=== PATIENT | male | born 1970 | race Caucasian/White ===

== ENCOUNTER 2016-06-26 11:16 | Emergency (ER) | payer SELFPAY ==
[~2016-06-26] VITALS: Ht 165.1 cm; Wt 90.0 kg
[~2016-06-26 11:16] MED LIST: GEMF600 PO; IBUP-232 PO; LISI-515 PO; TRAM50TA PO
[2016-06-26 11:19] VITALS: BP 157/102; PULSE 96; RESP 12; TEMP 97.7
--- NOTE | 2016-06-26 12:06 | PD ---
HPI Chief Complaint: Respiratory Distress Time Seen by Provider: 11:50 Travel History International Travel<30 days: No Contact w/Intl Traveler<30days: No Traveled to known affect area: No History of Present Illness HPI 46-year-old male with history of COPD here with complaint of shortness breath, cough, chest wall pain. Patient states that he has had a persistent cough for the last several months. This is productive of clearish sputum. No associated fevers or chills. He has some associated left-sided, left sternal margin chest pain. This is made worse with movement, cough, laying on his left side. Patient is concerned about a pulmonary mass, he brings records from a CT of the abdomen and pelvis from January 2016 that showed a 6 mm left pleural scar versus nodule. He has not yet had any follow-up that was indicated due to lack of health insurance. Patient states he presents to the ER today after several months of pain as it seems to be getting worse and not better. He denies any exertional component, history cardiac disease. PFSH Past Medical History Cancer: No Cardiovascular Problems: Yes High Cholesterol: Yes COPD: Yes Diminished Hearing: No Endocrine: No Gastrointestinal Disorders: Yes (pancreatitis) Genitourinary: No Hypertension: Yes Immune Disorder: No Musculoskeletal: No Neurologic: No Psychiatric: No Reproductive: No Respiratory: Yes (LEFT LUNG MASS) Triglycerides - High: Yes Tetanus Vaccination: > 5 Years Past Surgical History Abdominal Surgery: Yes (BILATERAL INGUINAL HERNIAS) Social History Alcohol Use: No Tobacco Use: Yes (06/04 ppd) Substance Use: No Allergies-Medications (Allergen,Severity, Reaction): Coded Allergies: Oxycodone (Verified Allergy, Severe, Hives, 06/26/16) Reported Meds & Prescriptions Reported Meds & Active Scripts Active Ibuprofen 600 Mg Tab 600 Mg PO Q6H PRN Lopid (Gemfibrozil) 600 Mg Tab 600 Mg PO BIDAC Reported Lisinopril 20 Mg Tab 20 Mg PO DAILY Review of Systems Except as stated in HPI: all other systems reviewed are Neg Physical Exam Narrative GENERAL: Obese male in no acute distress SKIN: Warm and dry. HEAD: Normocephalic. EYES: No scleral icterus. No injection or drainage. ENT: Mucous membranes pink and moist. NECK: Supple CARDIOVASCULAR: Regular rate and rhythm. No murmur appreciated. Reproducible point tenderness to palpation of the left lower sternal margin RESPIRATORY: No accessory muscle use. Wheezing and rhonchi bilaterally GASTROINTESTINAL: Obese MUSCULOSKELETAL: No edema. NEUROLOGICAL: Awake and alert. Normal speech. PSYCHIATRIC: Appropriate mood and affect; insight and judgment normal. Data Data Last Documented VS Vital Signs Date Time Temp Pulse Resp B/P Pulse Ox O2 Delivery O2 Flow Rate FiO2 06/26/16 12:44 98 06/26/16 11:19 97.7 96 12 157/102 Room Air Orders Complete Blood Count With Diff (06/26/16 12:03) Basic Metabolic Panel (Bmp) (06/26/16 12:03) Troponin I (06/26/16 12:03) Iv Access Insert/Monitor (06/26/16 12:03) Electrocardiogram (06/26/16 12:03) Ecg Monitoring (06/26/16 12:03) Oximetry (06/26/16 12:03) Chest, Single Ap (06/26/16 12:03) Sodium Chloride 0.9% Flush (Ns Flush) (06/26/16 12:15) Albuterol-Ipratropium Neb (Duoneb Neb) (06/26/16 12:15) Ketorolac Inj (Toradol Inj) (06/26/16 12:15) Labs Laboratory Tests Test 06/26/16 12:15 White Blood Count 6.7 TH/MM3 Red Blood Count 4.87 MIL/MM3 Hemoglobin 15.2 GM/DL Hematocrit 43.4 % Mean Corpuscular Volume 89.1 FL Mean Corpuscular Hemoglobin 31.3 PG Mean Corpuscular Hemoglobin 35.1 % Concent Red Cell Distribution Width 13.7 % Platelet Count 191 TH/MM3 Mean Platelet Volume 8.9 FL Neutrophils (%) (Auto) 59.2 % Lymphocytes (%) (Auto) 30.9 % Monocytes (%) (Auto) 8.0 % Eosinophils (%) (Auto) 0.9 % Basophils (%) (Auto) 1.0 % Neutrophils # (Auto) 4.0 TH/MM3 Lymphocytes # (Auto) 2.1 TH/MM3 Monocytes # (Auto) 0.5 TH/MM3 Eosinophils # (Auto) 0.1 TH/MM3 Basophils # (Auto) 0.1 TH/MM3 CBC Comment DIFF FINAL Differential Comment Sodium Level 137 MEQ/L Potassium Level 4.3 MEQ/L Chloride Level 103 MEQ/L Carbon Dioxide Level 25.7 MEQ/L Anion Gap 8 MEQ/L Blood Urea Nitrogen 18 MG/DL Creatinine 1.04 MG/DL Estimat Glomerular Filtration 77 ML/MIN Rate Random Glucose 146 MG/DL Calcium Level 9.2 MG/DL Troponin I LESS THAN 0.02 NG/ML [facility] Medical Decision Making Medical Screen Exam Complete: Yes Emergency Medical Condition: Yes Medical Record Reviewed: Yes Differential Diagnosis 46-year-old male with history of COPD or with months of shortness of breath, cough, chest wall pain. Differential includes COPD, chronic bronchitis, pneumonia, pulmonary mass, ACS, musculoskeletal, costochondritis, and less likely PE or dissection. Narrative Course Patient placed on monitor, IV established and blood obtained. Given 30 mg Toradol, DuoNeb 3. Twelve-lead EKG showed sinus rhythm without notable ST abnormalities, normal intervals. Portable chest x-ray obtained that by my read shows no acute abnormalities. CBC, BMP, troponin unremarkable. Financial counselor came and gave patient information about patient assistance application. Patient felt improved after the above therapy. He will be discharged home with steroids, albuterol for his COPD. He does not need emergent CT for his 6 mm pleural-based thickening, this can be performed as an outpatient. [facility] care. Given the chronicity of his symptoms I do not think he warrants serial EKGs, cardiac enzymes. This seems clearly muscular related to his COPD. Diagnosis Primary Impression: COPD (chronic obstructive pulmonary disease) with acute bronchitis Additional Impression: Chest wall pain Referrals: [facility] call for appointment Additional Instructions: Finished steroids as prescribed. Albuterol as needed for shortness of. Tylenol , ibuprofen as needed for chest wall pain. Follow-up in the [facility] to establish care. Med/Other Pt SpecificInfo: Prescription(s) given Scripts Nebulizer 1 Mis Mis #1 EA .ROUTE DIRECTED Ref 0 Use with albuterol every 4 hours as needed for cough, wheezing, shortness of breath Prov:Charmaine Galeas MD 06/26/16 Albuterol Neb 2.5 Mg/3 Ml Neb2.5 Mg NEB Q4HR NEB #60 NEBULE Ref 0 While awake Prov:Charmaine Galeas MD 06/26/16 Prednisone 50 Mg Tab50 Mg PO DAILY 5 Days Ref 0 Prov:Charmaine Galeas MD 06/26/16 Disposition: 01 DISCHARGE HOME Condition: Stable Charmaine Galeas MD Jun 26, 2016 12:06
[2016-06-26] MEDS: RESP: ALBUTEROL 2.5 MG/IPRATROPIUM 0.5 MG NEB (SCH) INH ×2 (12:10→12:11)
[2016-06-26] MEDS ORDERED: SODIUM CHLORIDE 0.9% FLUSH 5 ML FLUSH IVF PRN (12:15)
[2016-06-26] MEDS ORDERED: KETOROLAC TROMETHAMINE 30 MG/ML (IVP) VIAL IV PUSH ONE (12:15)
[2016-06-26 12:33] LABS: BASOPHIL # 0.1 TH/MM3 (0-0.2); EOSINOPHIL # 0.1 TH/MM3 (0-0.4); EOSINOPHIL % 0.9 % (0.0-4.0); HEMATOCRIT 43.4 % (39.0-51.0); HEMO FLAGS DIFF FINAL; LYMPH % 30.9 % (9.0-44.0); LYMPHOCYTE # 2.1 TH/MM3 (1.0-4.8); MEAN CELL VOLUME 89.1 FL (80.0-100.0); MEAN CORPUSCULAR HEMOGLOBIN 31.3 PG (27.0-34.0); MEAN CORPUSCULAR HGB CONC 35.1 % (32.0-36.0); NEUT % 59.2 % (16.0-70.0); PLATELET COUNT 191 TH/MM3 (150-450); RED BLOOD COUNT 4.87 MIL/MM3 (4.50-5.90); RED CELL DISTRIBUTION WIDTH 13.7 % (11.6-17.2); WHITE BLOOD COUNT 6.7 TH/MM3 (4.0-11.0)
[2016-06-26 12:44] VITALS: O2SAT 98
--- NOTE | 2016-06-26 12:58 | RADRPT ---
EXAM DATE/TIME: 06/26/2016 12:33 [facility] COMPARISON: CT ABDOMEN & PELVIS W CONTRAST, April 24, 2015, 19:29. CT ABDOMEN & PELVIS W CONTRAST, April 042015, 10:57. CHEST SINGLE AP, April 24, 2015, 16:10. INDICATIONS : Shortness of breath and chest pain. MEDICAL HISTORY : Chronic obstructive pulmonary disease. Cardiovascular disease. Hypertension. Pancreatitis SURGICAL HISTORY : None. ENCOUNTER: Initial ACUITY: 1 week PAIN SCORE: 7/10 LOCATION: Left chest FINDINGS: Portable AP view of the chest demonstrates a normal-sized cardiac silhouette. No effusion, consolidat ion, or pneumothorax is visualized. The bones and soft tissues demonstrate no acute abnormality. Ther e is a suspected small hiatal hernia. CONCLUSION: 1. No acute cardiopulmonary abnormality is identified. 2. Suspected small hiatal hernia. Kirill Pineda MD on June 26, 2016 at 12:56 Board Certified Radiologist. This report was verified electronically.
[2016-06-26 13:17] LABS: ANION GAP 8 MEQ/L (5-15); BICARBONATE 25.7 MEQ/L (21.0-32.0); BLOOD UREA NITROGEN 18 MG/DL (7-18); CHLORIDE 103 MEQ/L (98-107); GLOMERULAR FILTRATION RATE 77 ML/MIN (>89); SODIUM (NA) 137 MEQ/L (136-145)
[2016-06-26 13:25] LABS: POTASSIUM 4.3 MEQ/L (3.5-5.1)
[2016-06-26] MEDS ORDERED: PRED50 PO (13:35)
[2016-06-26] MEDS ORDERED: ALBU0.08 NEB (13:35)
[2016-06-26] MEDS ORDERED: NEBULIZER1 MI1 (13:36)
[2016-06-26] MEDS ORDERED: LISI-515 PO (13:40)
--- NOTE | 2016-06-26 19:23 | EKG ---
Date Performed: 06/26/2016 Time Performed: 12:22:14 PTAGE: 46 years EKG: Sinus rhythm NORMAL ECG NO SIGNIFICANT CHANGE FROM PRIOR ELECTROCARDIOGRAM. PREVIOUS TRACING : 10/10/2015 16.35 DOCTOR: David Aviles Interpretating Date/Time 06/26/2016 19:22:09
== END 2016-06-26 13:58 | disposition home or self-care (01) ==
LOC: NEPD 11:16
DX: J44.0 Chronic obstructive pulmonary disease with (acute) lower respiratory infection (principal); R07.89 Other chest pain; E78.00 Pure hypercholesterolemia, unspecified; I10 Essential (primary) hypertension; F17.210 Nicotine dependence, cigarettes, uncomplicated
CPT/HCPCS: 71010; 80048; 84484; 85025; 93005; 94640; 94664; 96374; 99284; J1885

== ENCOUNTER 2016-09-17 09:27 | Emergency (ER) | payer SELFPAY ==
[~2016-09-17] VITALS: Ht 165.1 cm; Wt 90.5 kg
[~2016-09-17 09:27] MED LIST changes: +ALBU0.08 NEB; +NEBULIZER1 MI1; +PRED50 PO; -TRAM50TA PO
[2016-09-17 09:29] VITALS: BP 169/117; PULSE 104; RESP 20; TEMP 97.7; O2SAT 99
--- NOTE | 2016-09-17 09:57 | PD ---
HPI Chief Complaint: Hypertension Time Seen by Provider: 09:54 Travel History International Travel<30 days: No Contact w/Intl Traveler<30days: No Traveled to known affect area: No History of Present Illness HPI Patient is a 46-year-old male presenting to emergency department for evaluation of elevated blood pressures, headache, dizziness, blurry vision, left-sided chest pain. Patient states that he's been out of his blood pressure medications for the last 2 months due to lack of insurance. He states he's had a frontal headache, he rates his pain a 6 out of 10 and states it's constant. He took ibuprofen yesterday which helped alleviate his symptoms somewhat. Denies any photophobia. He reports dizziness that comes and goes, worse with head movement or positional changes. He also reports chest congestion and a productive cough with clear sputum. He reports feeling overall weak. He reports that he continues to smoke but has been trying to cut back. He denies any fever, chills, nausea, vomiting, shortness of breath. He states when he checks his blood pressure his systolic is in the 160s to 170s and diastolic is in the 110s. Denies any illicit drug use. PFSH Past Medical History Cancer: No High Cholesterol: Yes COPD: Yes Diminished Hearing: No Endocrine: No Gastrointestinal Disorders: Yes (pancreatitis) Genitourinary: No Hypertension: Yes Immune Disorder: No Musculoskeletal: No Neurologic: No Psychiatric: No Reproductive: No Triglycerides - High: Yes Past Surgical History Abdominal Surgery: Yes (BILATERAL INGUINAL HERNIAS) Social History Alcohol Use: No Tobacco Use: Yes (1/2 ppd) Substance Use: No Allergies-Medications (Allergen,Severity, Reaction): Coded Allergies: Oxycodone (Verified Allergy, Severe, Hives, 09/17/16) Reported Meds & Prescriptions Reported Meds & Active Scripts Active Lisinopril 20 Mg Tab 20 Mg PO DAILY Albuterol Neb (Albuterol Sulfate) 2.5 Mg/3 Ml Neb 2.5 Mg NEB Q4HR NEB While awake Reported Lisinopril 20 Mg Tab 20 Mg PO DAILY Review of Systems Except as stated in HPI: all other systems reviewed are Neg General / Constitutional: No: Fever, Chills Eyes: Positive: Blurred Vision HENT: Positive: Headaches, Congestion, No: Lightheadedness Cardiovascular: Positive: Chest Pain or Discomfort, No: Tachycardia, Diaphoresis Respiratory: Positive: Cough, Wheezing, No: Shortness of Breath Gastrointestinal: No: Nausea, Vomiting, Abdominal Pain Musculoskeletal: No: Myalgias Neurologic: Positive: Dizziness, No: Syncope, Focal Abnormalities Physical Exam Narrative GENERAL: Overweight, well-developed, alert male. Resting comfortably in no acute distress. SKIN: Focused skin assessment warm/dry. HEAD: Atraumatic. Normocephalic. EYES: Pupils equal and round. No scleral icterus. No injection or drainage. ENT: No nasal bleeding or discharge. Mucous membranes pink and moist. NECK: Trachea midline. No JVD. CARDIOVASCULAR: Regular rate and rhythm. No murmur appreciated. RESPIRATORY: No accessory muscle use. Expiratory wheezing throughout lung anglin. No increased work of breathing, no nasal flaring, no retractions noted. GASTROINTESTINAL: Abdomen soft, non-tender, nondistended. Hepatic and splenic margins not palpable. MUSCULOSKELETAL: No obvious deformities. No clubbing. No cyanosis. No edema. NEUROLOGICAL: Awake and alert. No obvious cranial nerve deficits. Motor grossly within normal limits. Normal speech. PSYCHIATRIC: Appropriate mood and affect; insight and judgment normal. Data Data Last Documented VS Vital Signs Date Time Temp Pulse Resp B/P Pulse Ox O2 Delivery O2 Flow Rate FiO2 09/17/16 10:30 104 20 166/99 97 Room Air 09/17/16 10:05 21 09/17/16 09:29 97.7 Orders Complete Blood Count With Diff (09/17/16 09:49) Chest, Single Ap (09/17/16 09:49) Ecg Monitoring (09/17/16 09:49) Iv Access Insert/Monitor (09/17/16 09:49) Oximetry (09/17/16 09:49) Oxygen Administration (09/17/16 09:49) Albuterol-Ipratropium Neb (Duoneb Neb) (09/17/16 10:00) Sodium Chloride 0.9% Flush (Ns Flush) (09/17/16 10:00) Electrocardiogram (09/17/16 09:49) Ckmb (Isoenzyme) Profile (09/17/16 09:49) Magnesium (Mg) (09/17/16 09:49) Prothrombin Time / Inr (Pt) (09/17/16 09:49) Act Partial Throm Time (Ptt) (09/17/16 09:49) Troponin I (09/17/16 09:49) Basic Metabolic Panel (Bmp) (09/17/16 09:53) Lisinopril (Prinivil) (09/17/16 10:15) CKMB (09/17/16 10:05) CKMB% (09/17/16 10:05) Labs Laboratory Tests Test 09/17/16 10:05 White Blood Count 5.8 TH/MM3 Red Blood Count 5.06 MIL/MM3 Hemoglobin 16.3 GM/DL Hematocrit 46.4 % Mean Corpuscular Volume 91.6 FL Mean Corpuscular Hemoglobin 32.2 PG Mean Corpuscular Hemoglobin 35.1 % Concent Red Cell Distribution Width 13.7 % Platelet Count 194 TH/MM3 Mean Platelet Volume 9.0 FL Neutrophils (%) (Auto) 56.5 % Lymphocytes (%) (Auto) 31.9 % Monocytes (%) (Auto) 9.9 % Eosinophils (%) (Auto) 1.5 % Basophils (%) (Auto) 0.2 % Neutrophils # (Auto) 3.3 TH/MM3 Lymphocytes # (Auto) 1.8 TH/MM3 Monocytes # (Auto) 0.6 TH/MM3 Eosinophils # (Auto) 0.1 TH/MM3 Basophils # (Auto) 0.0 TH/MM3 CBC Comment DIFF FINAL Differential Comment Prothrombin Time 11.5 SEC Prothromb Time International 1.0 RATIO Ratio Activated Partial 24.0 SEC Thromboplast Time Sodium Level 135 MEQ/L Potassium Level 4.6 MEQ/L Chloride Level 104 MEQ/L Carbon Dioxide Level 21.2 MEQ/L Anion Gap 10 MEQ/L Blood Urea Nitrogen 17 MG/DL Creatinine 1.28 MG/DL Estimat Glomerular Filtration 60 ML/MIN Rate Random Glucose 127 MG/DL Calcium Level 9.2 MG/DL Magnesium Level 2.2 MG/DL Total Creatine Kinase 178 U/L Troponin I LESS THAN 0.02 NG/ML MDM Medical Decision Making Medical Screen Exam Complete: Yes Emergency Medical Condition: Yes Interpretation(s) Last Impressions Chest X-Ray 09/17/16 0994 Signed Impressions: Service Date/Time: Saturday, September 17, 2016 09:58 - CONCLUSION: No acute disease. Elemr Mahoney MD Laboratory Tests Test 09/17/16 10:05 White Blood Count 5.8 TH/MM3 Red Blood Count 5.06 MIL/MM3 Hemoglobin 16.3 GM/DL Hematocrit 46.4 % Mean Corpuscular Volume 91.6 FL Mean Corpuscular Hemoglobin 32.2 PG Mean Corpuscular Hemoglobin 35.1 % Concent Red Cell Distribution Width 13.7 % Platelet Count 194 TH/MM3 Mean Platelet Volume 9.0 FL Neutrophils (%) (Auto) 56.5 % Lymphocytes (%) (Auto) 31.9 % Monocytes (%) (Auto) 9.9 % Eosinophils (%) (Auto) 1.5 % Basophils (%) (Auto) 0.2 % Neutrophils # (Auto) 3.3 TH/MM3 Lymphocytes # (Auto) 1.8 TH/MM3 Monocytes # (Auto) 0.6 TH/MM3 Eosinophils # (Auto) 0.1 TH/MM3 Basophils # (Auto) 0.0 TH/MM3 CBC Comment DIFF FINAL Differential Comment Prothrombin Time 11.5 SEC Prothromb Time International 1.0 RATIO Ratio Activated Partial 24.0 SEC Thromboplast Time Sodium Level 135 MEQ/L Potassium Level 4.6 MEQ/L Chloride Level 104 MEQ/L Carbon Dioxide Level 21.2 MEQ/L Anion Gap 10 MEQ/L Blood Urea Nitrogen 17 MG/DL Creatinine 1.28 MG/DL Estimat Glomerular Filtration 60 ML/MIN Rate Random Glucose 127 MG/DL Calcium Level 9.2 MG/DL Magnesium Level 2.2 MG/DL Total Creatine Kinase 178 U/L Troponin I LESS THAN 0.02 NG/ML Vital Signs Date Time Temp Pulse Resp B/P Pulse Ox O2 Delivery O2 Flow Rate FiO2 09/17/16 09:29 97.7 104 20 169/117 99 Room Air Differential Diagnosis COPD exacerbation versus sinusitis versus unstable angina versus cardiac arrhythmia versus AMI versus hypertension Narrative Course Patient is a 46-year-old male that presented to emergency for evaluation of elevated blood pressure readings, dizziness, headache, chest congestion. Patient was hypertensive on arrival, he has been out of his blood pressure medicines for 2 months. CBC, chemistry, coags reviewed and are unremarkable. Chest x-ray shows no acute disease. Patient was given lisinopril 20 mg times one dose in the emergency department. His blood pressure was reassessed has improved. Patient will be discharged home, he will given information on the [facility] to continue routine health care. He is encouraged to avoid tobacco use. Return to emergency department for any new or worsening symptoms. Patient verbalized understanding of these instructions. Patient is stable for discharge. Diagnosis Primary Impression: Hypertension Qualified Code: I10 - Essential hypertension Additional Impression: COPD (chronic obstructive pulmonary disease) with acute bronchitis Referrals: [facility] 2 days Patient Instructions: 2 Gram Sodium Diet (DC), COPD (Chronic Obstructive Pulmonary Disease) (ED), General Instructions, Hypertension (ED) Additional Instructions: Follow-up at the at [facility] Avoid tobacco use Maintain a heart healthy diet Take medications as directed Return to emergency department for any new or worsening symptoms Med/Other Pt SpecificInfo: Prescription(s) given Scripts Lisinopril 20 Mg Tab20 Mg PO DAILY #30 TAB Ref 0 Prov:Valerie Goldstein 09/17/16 Disposition: 01 DISCHARGE HOME Condition: Stable Valerie Goldstein Sep 17, 2016 09:57
[2016-09-17] MEDS ORDERED: SODIUM CHLORIDE 0.9% FLUSH 10 ML FLUSH IVF PRN (10:00)
[2016-09-17] MEDS: RESP: ALBUTEROL 2.5 MG/IPRATROPIUM 0.5 MG NEB (SCH) INH (10:03)
[2016-09-17 10:05] VITALS: O2SAT 97
[2016-09-17] MEDS ORDERED: LISINOPRIL 20 MG TAB PO ONE (10:15)
[2016-09-17 10:24] LABS: AUTOMATED NEUTROPHIL # 3.3 TH/MM3 (1.8-7.7); BASOPHIL % 0.2 % (0.0-2.0); EOSINOPHIL # 0.1 TH/MM3 (0-0.4); EOSINOPHIL % 1.5 % (0.0-4.0); HEMATOCRIT 46.4 % (39.0-51.0); HEMO FLAGS DIFF FINAL; LYMPH % 31.9 % (9.0-44.0); LYMPHOCYTE # 1.8 TH/MM3 (1.0-4.8); MEAN CELL VOLUME 91.6 FL (80.0-100.0); MEAN CORPUSCULAR HEMOGLOBIN 32.2 PG (27.0-34.0); MEAN CORPUSCULAR HGB CONC 35.1 % (32.0-36.0); MONO % 9.9 % (0.0-8.0); NEUT % 56.5 % (16.0-70.0); PLATELET COUNT 194 TH/MM3 (150-450); RED BLOOD COUNT 5.06 MIL/MM3 (4.50-5.90); RED CELL DISTRIBUTION WIDTH 13.7 % (11.6-17.2); WHITE BLOOD COUNT 5.8 TH/MM3 (4.0-11.0)
[2016-09-17 10:30] VITALS: BP 166/99; PULSE 104; RESP 20; O2SAT 97
[2016-09-17 10:33] LABS: PROTHROMBIN TIME - PATIENT 11.5 SEC (9.8-11.6)
--- NOTE | 2016-09-17 10:33 | RADRPT ---
EXAM DATE/TIME: 09/17/2016 09:58 [facility] COMPARISON: CHEST SINGLE AP, June 26, 2016, 12:33. INDICATIONS : Palpitations. Patient states he is having blood pressure issues. MEDICAL HISTORY : Chronic obstructive pulmonary disease. Cardiovascular disease. SURGICAL HISTORY : None. ENCOUNTER: Initial ACUITY: 1 day PAIN SCORE: 2/10 LOCATION: Bilateral chest FINDINGS: A single view of the chest demonstrates the lungs to be symmetrically aerated without evidence of mas s, infiltrate or effusion. The cardiomediastinal contours are unremarkable. Osseous structures are intact. CONCLUSION: No acute disease. Elmer Mahoney MD on September 17, 2016 at 10:31 Board Certified Radiologist. This report was verified electronically.
[2016-09-17 10:44] LABS: BICARBONATE 21.2 MEQ/L (21.0-32.0); POTASSIUM 4.6 MEQ/L (3.5-5.1)
[2016-09-17 10:50] LABS: CREATINE KINASE 178 U/L (39-308); MAGNESIUM 2.2 MG/DL (1.5-2.5)
[2016-09-17 11:02] LABS: CKMB 0.9 NG/ML (0.5-3.6)
--- NOTE | 2016-09-17 11:06 | PD ---
Data Data Last Documented VS Vital Signs Date Time Temp Pulse Resp B/P Pulse Ox O2 Delivery O2 Flow Rate FiO2 09/17/16 10:30 104 20 166/99 97 Room Air 09/17/16 10:05 21 09/17/16 09:29 97.7 Orders Complete Blood Count With Diff (09/17/16 09:49) Chest, Single Ap (09/17/16 09:49) Ecg Monitoring (09/17/16 09:49) Iv Access Insert/Monitor (09/17/16 09:49) Oximetry (09/17/16 09:49) Oxygen Administration (09/17/16 09:49) Albuterol-Ipratropium Neb (Duoneb Neb) (09/17/16 10:00) Sodium Chloride 0.9% Flush (Ns Flush) (09/17/16 10:00) Electrocardiogram (09/17/16 09:49) Ckmb (Isoenzyme) Profile (09/17/16 09:49) Magnesium (Mg) (09/17/16 09:49) Prothrombin Time / Inr (Pt) (09/17/16 09:49) Act Partial Throm Time (Ptt) (09/17/16 09:49) Troponin I (09/17/16 09:49) Basic Metabolic Panel (Bmp) (09/17/16 09:53) Lisinopril (Prinivil) (09/17/16 10:15) CKMB (09/17/16 10:05) CKMB% (09/17/16 10:05) Labs Laboratory Tests Test 09/17/16 10:05 White Blood Count 5.8 TH/MM3 Red Blood Count 5.06 MIL/MM3 Hemoglobin 16.3 GM/DL Hematocrit 46.4 % Mean Corpuscular Volume 91.6 FL Mean Corpuscular Hemoglobin 32.2 PG Mean Corpuscular Hemoglobin 35.1 % Concent Red Cell Distribution Width 13.7 % Platelet Count 194 TH/MM3 Mean Platelet Volume 9.0 FL Neutrophils (%) (Auto) 56.5 % Lymphocytes (%) (Auto) 31.9 % Monocytes (%) (Auto) 9.9 % Eosinophils (%) (Auto) 1.5 % Basophils (%) (Auto) 0.2 % Neutrophils # (Auto) 3.3 TH/MM3 Lymphocytes # (Auto) 1.8 TH/MM3 Monocytes # (Auto) 0.6 TH/MM3 Eosinophils # (Auto) 0.1 TH/MM3 Basophils # (Auto) 0.0 TH/MM3 CBC Comment DIFF FINAL Differential Comment Prothrombin Time 11.5 SEC Prothromb Time International 1.0 RATIO Ratio Activated Partial 24.0 SEC Thromboplast Time Sodium Level 135 MEQ/L Potassium Level 4.6 MEQ/L Chloride Level 104 MEQ/L Carbon Dioxide Level 21.2 MEQ/L Anion Gap 10 MEQ/L Blood Urea Nitrogen 17 MG/DL Creatinine 1.28 MG/DL Estimat Glomerular Filtration 60 ML/MIN Rate Random Glucose 127 MG/DL Calcium Level 9.2 MG/DL Magnesium Level 2.2 MG/DL Total Creatine Kinase 178 U/L Troponin I LESS THAN 0.02 NG/ML MDM Supervised Visit with [facility]: Yes Narrative Course I, Dr. Galeas, have reviewed the advance practice practioner's documentation and am in agreement, met with the patient face to face, made the diagnosis, and the medical decision making was done by me. *My assessment and Findings: 46-year-old male with history of long-standing high blood pressure with increasing blood pressure since running out of his lisinopril. Patient notes a vague headache, occasional dizziness and occasional left-sided chest pain since the last 2 months. He is asymptomatic at this time. Hypertensive. Regular rate and rhythm, occasional wheeze. Differential includes medication nonadherence, HTN, and less likely ACS. Suspect that his occasional chest pain may be due to COPD. He is asymptomatic at this time. Twelve-lead EKG, chest x-ray and cardiac enzymes were unremarkable. Patient's blood pressure down trended while in the ER will be discharged home with medication refill and outpatient PCP referral. Charmaine Galeas MD Sep 17, 2016 11:06
[2016-09-17] MEDS ORDERED: LISI-515 PO (11:08)
[2016-09-17 11:13] VITALS: BP 157/98; PULSE 115; RESP 16; O2SAT 95
--- NOTE | 2016-09-17 14:50 | EKG ---
Date Performed: 09/17/2016 Time Performed: 10:12:42 PTAGE: 46 years EKG: Sinus rhythm NORMAL ECG NO SIGNIFICANT CHANGE FROM PRIOR ELECTROCARDIOGRAM. PREVIOUS TRACING : 06/26/2016 12.22 DOCTOR: David Aviles Interpretating Date/Time 09/17/2016 14:48:29
== END 2016-09-17 11:46 | disposition home or self-care (01) ==
LOC: NEPD 09:27
DX: I10 Essential (primary) hypertension (principal); J44.0 Chronic obstructive pulmonary disease with (acute) lower respiratory infection; J20.9 Acute bronchitis, unspecified; R07.9 Chest pain, unspecified; R51 Headache; R42 Dizziness and giddiness; F17.210 Nicotine dependence, cigarettes, uncomplicated
CPT/HCPCS: 71010; 80048; 82550; 82552; 83735; 84484; 85025; 85610; 85730; 93005; 94640; 94664

== ENCOUNTER 2016-09-20 14:30 | Inpatient (IN) | payer SELFPAY ==
[~2016-09-20] VITALS: Ht 165.1 cm; Wt 93.6 kg
[~2016-09-20 14:30] MED LIST changes: -GEMF600 PO; -IBUP-232 PO; -NEBULIZER1 MI1; -PRED50 PO
[2016-09-20 14:37] VITALS: BP 208/125; PULSE 106; RESP 18; TEMP 97.6; O2SAT 100
[2016-09-20] MEDS ORDERED: SODIUM CHLOR 0.9% 1000 ML INJ 1,000 ML IV SCH (15:09)
--- NOTE | 2016-09-20 15:12 | PD ---
HPI Chief Complaint: Abdominal Pain Time Seen by Provider: 15:10 Travel History International Travel<30 days: No Contact w/Intl Traveler<30days: No Traveled to known affect area: No History of Present Illness HPI 46-year-old male presents the emergency department via ambulance for "pancreatitis". Patient has history of recurrent pancreatitis the last bout being in March of last year. Patient states in the last 2 days and increasing abdominal pain and radiating to the back consistent with his previous attacks. Patient denies fever, chills, urinary symptoms, nausea, vomiting, or other constitutional symptoms. Patient is allergic to oxycodone. PFSH Past Medical History Cancer: No Cardiovascular Problems: Yes High Cholesterol: Yes COPD: Yes Diminished Hearing: No Endocrine: No Gastrointestinal Disorders: Yes (pancreatitis) Genitourinary: No Hypertension: Yes Immune Disorder: No Musculoskeletal: No Neurologic: No Psychiatric: No Reproductive: No Respiratory: Yes (COPD) Immunizations Current: Yes Pancreatitis: Yes Triglycerides - High: Yes Past Surgical History Abdominal Surgery: Yes (BILATERAL INGUINAL HERNIAS) Other Surgery: Yes Social History Alcohol Use: No Tobacco Use: Yes (1/2 ppd) Substance Use: No Allergies-Medications (Allergen,Severity, Reaction): Coded Allergies: Oxycodone (Verified Allergy, Severe, Hives, 09/17/16) Reported Meds & Prescriptions Reported Meds & Active Scripts Active Lisinopril 20 Mg Tab 20 Mg PO DAILY Lisinopril 20 Mg Tab 20 Mg PO DAILY Albuterol Neb (Albuterol Sulfate) 2.5 Mg/3 Ml Neb 2.5 Mg NEB Q4HR NEB While awake Reported Lisinopril 20 Mg Tab 20 Mg PO DAILY Review of Systems Except as stated in HPI: all other systems reviewed are Neg General / Constitutional: No: Fever, Chills Eyes: No: Visual changes HENT: No: Headaches Cardiovascular: No: Chest Pain or Discomfort Respiratory: No: Shortness of Breath Gastrointestinal: Positive: Abdominal Pain, No: Nausea, Vomiting, Diarrhea Genitourinary: Positive: Flank Pain, No: Urgency, Frequency, Dysuria Musculoskeletal: No: Pain Skin: No Rash Neurologic: No: Weakness Psychiatric: No: Depression Endocrine: No: Polydipsia Hematologic/Lymphatic: No: Easy Bruising Physical Exam Narrative GENERAL: Patient appears in moderate distress. SKIN: Warm and dry. Normal color. Normal turgor. No diaphoresis. HEAD: Atraumatic. Normocephalic. EYES: Pupils equal and round. No scleral icterus. No injection or drainage. ENT: No nasal bleeding or discharge. Mucous membranes pink and moist. Pharynx is clear. Airway is patent. NECK: Trachea midline. Supple nontender.. CARDIOVASCULAR: Regular rate and rhythm. RESPIRATORY: No accessory muscle use. Clear to auscultation. Breath sounds equal bilaterally. GASTROINTESTINAL: Abdomen soft, moderate epigastric tenderness, nondistended. Hepatic and splenic margins not palpable. Bilateral CVA tenderness. MUSCULOSKELETAL: Extremities without clubbing, cyanosis, or edema. No obvious deformities. NEUROLOGICAL: Awake and alert. No obvious cranial nerve deficits. Motor grossly within normal limits. Five out of 5 muscle strength in the arms and legs. Normal speech. PSYCHIATRIC: Appropriate mood and affect; insight and judgment normal. Data Data Last Documented VS Vital Signs Date Time Temp Pulse Resp B/P Pulse Ox O2 Delivery O2 Flow Rate FiO2 09/20/16 14:37 97.6 106 18 208/125 100 Orders Complete Blood Count With Diff (09/20/16 15:09) Comprehensive Metabolic Panel (09/20/16 15:09) Lipase (09/20/16 15:09) Lactic Acid (09/20/16 15:09) Prothrombin Time / Inr (Pt) (09/20/16 15:09) Act Partial Throm Time (Ptt) (09/20/16 15:09) Urinalysis - C+S If Indicated (09/20/16 15:09) Iv Access Insert/Monitor (09/20/16 15:09) Ecg Monitoring (09/20/16 15:09) Oximetry (09/20/16 15:09) NPO (09/20/16 15:09) Morphine Inj (Morphine Inj) (09/20/16 15:15) Ondansetron Inj (Zofran Inj) (09/20/16 15:15) Sodium Chlor 0.9% 1000 Ml Inj (Ns 1000 M (09/20/16 15:09) Sodium Chloride 0.9% Flush (Ns Flush) (09/20/16 15:15) Ketorolac Inj (Toradol Inj) (09/20/16 15:15) Sodium Chlor 0.9% 1000 Ml Inj (Ns 1000 M (09/20/16 16:45) Ct Abd/Pel W Iv Contrast(Rout) (09/20/16 16:36) Hydromorphone Pf Inj (Dilaudid Pf Inj) (09/20/16 16:45) Labs Laboratory Tests Test 09/20/16 15:20 White Blood Count 14.4 TH/MM3 Red Blood Count 5.18 MIL/MM3 Hemoglobin 16.2 GM/DL Hematocrit 48.5 % Mean Corpuscular Volume 93.5 FL Mean Corpuscular Hemoglobin 31.2 PG Mean Corpuscular Hemoglobin 33.4 % Concent Red Cell Distribution Width 13.6 % Platelet Count 134 TH/MM3 Mean Platelet Volume 9.8 FL Neutrophils (%) (Auto) 74.6 % Lymphocytes (%) (Auto) 18.1 % Monocytes (%) (Auto) 6.5 % Eosinophils (%) (Auto) 0.2 % Basophils (%) (Auto) 0.6 % Neutrophils # (Auto) 10.8 TH/MM3 Lymphocytes # (Auto) 2.6 TH/MM3 Monocytes # (Auto) 0.9 TH/MM3 Eosinophils # (Auto) 0.0 TH/MM3 Basophils # (Auto) 0.1 TH/MM3 CBC Comment DIFF FINAL Differential Comment Prothrombin Time 10.9 SEC Prothromb Time International 1.0 RATIO Ratio Activated Partial 23.9 SEC Thromboplast Time Sodium Level 134 MEQ/L Potassium Level 3.7 MEQ/L Chloride Level 102 MEQ/L Carbon Dioxide Level 21.4 MEQ/L Anion Gap 11 MEQ/L Blood Urea Nitrogen 12 MG/DL Creatinine 1.07 MG/DL Estimat Glomerular Filtration 74 ML/MIN Rate Random Glucose 116 MG/DL Lactic Acid Level 0.6 mmol/L Calcium Level 9.0 MG/DL Total Bilirubin 0.9 MG/DL Aspartate Amino Transf 82 U/L (AST/SGOT) Alkaline Phosphatase 121 U/L Total Protein 7.7 GM/DL Albumin 4.1 GM/DL Lipase 5936 U/L [facility] Medical Decision Making Medical Screen Exam Complete: Yes Emergency Medical Condition: Yes Medical Record Reviewed: Yes Differential Diagnosis Abdominal pain. Pancreatitis. Flank pain. Narrative Course Patient is medically stable at time of exam in the ambulance [facility]. IV access is maintained, and labs ordered including CBC, CMP, lactic acid, urinalysis and lipase. Patient is given 4 mg IV morphine as well as 30 mg Toradol IV. Patient is given 1000 mL's normal saline bolus. Patient is given an additional 4 mg morphine IV. Labs show white blood cell count is elevated at 14.4, platelet count is 134. Coags are normal. Chemistry shows sodium 134. Potassium 3.7. BUN of 12. Creatinine of 1.07. Lactic acid is 0.6. AST is elevated at 82. Alkaline phosphatase is 121, and lipase is elevated [place] 5936. CT the abdomen is pelvis is ordered with IV contrast. 1 mg Tylenol out of his ordered IV. Second bolus of 1000 mL's normal saline is ordered. 1640 hrs. call to hospitalist for admission. [address] patient discussed with Dr. Rnagel who agrees to admit the patient. CT the abdomen and pelvis is still pending. Diagnosis Primary Impression: Pancreatitis Qualified Code: K85.90 - Acute pancreatitis, unspecified complication status, unspecified pancreatitis type Admitting Information Admitting Physician Requests: Admit Condition: Stable Lincoln Bolanos Sep 20, 2016 15:12
[2016-09-20] MEDS ORDERED: SODIUM CHLORIDE 0.9% FLUSH 10 ML FLUSH IV FLUSH PRN (15:15)
[2016-09-20] MEDS ORDERED: MORPHINE SULFATE 4 MG/ML INJ IV PUSH ONE (15:15)
[2016-09-20] MEDS ORDERED: ONDANSETRON HCL 4 MG/2 ML VIAL IVP ONE (15:15)
[2016-09-20] MEDS ORDERED: KETOROLAC TROMETHAMINE 30 MG/ML (IVP) VIAL IVP ONE (15:15)
[2016-09-20 15:46] LABS: AUTOMATED NEUTROPHIL # 10.8 TH/MM3 (1.8-7.7); BASOPHIL # 0.1 TH/MM3 (0-0.2); BASOPHIL % 0.6 % (0.0-2.0); EOSINOPHIL % 0.2 % (0.0-4.0); HEMATOCRIT 48.5 % (39.0-51.0); HEMO FLAGS DIFF FINAL; LYMPH % 18.1 % (9.0-44.0); LYMPHOCYTE # 2.6 TH/MM3 (1.0-4.8); MEAN CELL VOLUME 93.5 FL (80.0-100.0); MEAN CORPUSCULAR HEMOGLOBIN 31.2 PG (27.0-34.0); MEAN CORPUSCULAR HGB CONC 33.4 % (32.0-36.0); MONO % 6.5 % (0.0-8.0); NEUT % 74.6 % (16.0-70.0); PLATELET COUNT 134 TH/MM3 (150-450); RED BLOOD COUNT 5.18 MIL/MM3 (4.50-5.90); RED CELL DISTRIBUTION WIDTH 13.6 % (11.6-17.2); WHITE BLOOD COUNT 14.4 TH/MM3 (4.0-11.0)
[2016-09-20 15:57] LABS: ANION GAP 11 MEQ/L (5-15); AST (GOT) 82 U/L (15-37); BICARBONATE 21.4 MEQ/L (21.0-32.0); BLOOD UREA NITROGEN 12 MG/DL (7-18); CHLORIDE 102 MEQ/L (98-107); GLOMERULAR FILTRATION RATE 74 ML/MIN (>89); SODIUM (NA) 134 MEQ/L (136-145)
[2016-09-20 15:59] LABS: POTASSIUM 3.7 MEQ/L (3.5-5.1)
[2016-09-20 16:05] LABS: ALKALINE PHOSPHATASE 121 U/L (45-117); TOTAL BILIRUBIN ADULT 0.9 MG/DL (0.2-1.0)
[2016-09-20 16:12] LABS: APTT (PATIENT) 23.9 SEC (24.3-30.1); PROTHROMBIN TIME - PATIENT 10.9 SEC (9.8-11.6)
[2016-09-20] MEDS ORDERED: SODIUM CHLOR 0.9% 1000 ML INJ 1,000 ML IV ONE (16:45)
[2016-09-20] MEDS ORDERED: HYDROmorphone HCL PF 1 MG/ML VIAL IV PUSH ONE ×2 (16:45→21:15)
[2016-09-20 17:17] LABS: ALT (GPT) 84 U/L (12-78)
--- NOTE | 2016-09-20 17:18 | HHI.HP ---
[facility] Service [place] [facility] Primary Care Physician No Primary Care Physician Admission Diagnosis Pancreatitis Diagnoses: (1) Pancreatitis Diagnosis: Principal Chief Complaint: asbdominal pain Travel History International Travel<30 Days: No Contact w/Intl Traveler <30 Da: No Traveled to Known Affected Are: No History of Present Illness patient is a 46 y/o male with history of alcohol abuse and pancreatitis presented to ER with abdominal pain. he says that the pain started two days ago. pain is epigastric with no radiation. pain was severe in intensity and associated with nausea, vomiting and diarrhea with occasional black stools. he says that he had a cheeseburger and beer yesterday which made the pain much worse. he denies any fever or chills. Review of Systems Constitutional: DENIES: Fever, Weight loss, Chills, Night Sweats Eyes: DENIES: Blurred vision, Diplopia, Vision loss, Double Vision Ears, nose, mouth, throat: DENIES: Tinnitus, Vertigo, Throat pain, Epistaxis Respiratory: DENIES: Apneas, Cough, Snoring, Wheezing, Hemoptysis, Sputum production, Shortness of breath Cardiovascular: DENIES: Chest pain, Palpitations, Syncope, Dyspnea on Exertion , PND, Lower Extremity Edema, Orthopnea, Claudication Gastrointestinal: COMPLAINS OF: Abdominal pain, Black stools, Diarrhea, Nausea , Vomiting, DENIES: Bloody stools, Constipation, Difficulty Swallowing, Anorexia Genitourinary: DENIES: Urinary frequency, Urgency, Hematuria, Dysuria Musculoskeletal: DENIES: Joint pain, Muscle aches, Stiffness, Joint Swelling Integumentary: DENIES: Rash Neurologic: DENIES: Abnormal gait, Headache, Localized weakness, Paresthesias, Seizures, Speech Problems, Tremor, Poor Balance Psychiatric: DENIES: Anxiety, Confusion, Mood changes, Depression, Hallucinations, Agitation, Suicidal Ideation, Homicidal Ideation, Delusions Past Family Social History Past Medical History pancreatitis hypertension Past Surgical History hernia repair Reported Medications Lisinopril 20 Mg Tab 20 Mg PO DAILY Lisinopril 20 Mg Tab 20 Mg PO DAILY Albuterol Neb (Albuterol Sulfate) 2.5 Mg/3 Ml Neb 2.5 Mg NEB Q4HR NEB While awake Allergies: Coded Allergies: Oxycodone (Verified Allergy, Severe, Hives, 09/17/16) Active Ordered Medications Current Medications Morphine Sulfate (Morphine Inj) 4 mg ONCE ONCE IV PUSH Last administered on 15:29; Start 09/20/16 at 15:15; Stop 09/20/16 at 15:16; Status DC Ondansetron HCl 4 mg 4 mg ONCE ONCE IVP Last administered on 09/20/16 15:30; Start 09/20/16 at 15:15; Stop 09/20/16 at 15:16; Status DC Sodium Chloride (NS 1000 ml Inj) 1,000 ml @ 1,000 mls/hr Q1H IV Last administered on 09/20/16 15:29; Start 09/20/16 at 15:09; Stop 09/20/16 at 16:08 ; Status DC Sodium Chloride (NS Flush) 2 ml UNSCH PRN IV FLUSH FLUSH AFTER USING IV ACCESS ; Start 09/20/16 at 15:15 Ketorolac Tromethamine 30 mg 30 mg ONCE ONCE IVP Last administered on 15:29; Start 09/20/16 at 15:15; Stop 09/20/16 at 15:16; Status DC Sodium Chloride (NS 1000 ml Inj) 1,000 ml @ 999 mls/hr BOLUS ONCE IV Last administered on 09/20/16 16:50; Start 09/20/16 at 16:45; Stop 09/20/16 at 17:45 Hydromorphone HCl (Dilaudid Pf Inj) 1 mg ONCE ONCE IV PUSH Last administered on 09/20/16 16:50; Start 09/20/16 at 16:45; Stop 09/20/16 at 16:46; Status DC Social History smokes a pack a day- drinks daily. Physical Exam Vital Signs Vital Signs Date Time Temp Pulse Resp B/P Pulse Ox O2 Delivery O2 Flow Rate FiO2 09/20/16 14:37 97.6 106 18 208/125 100 Physical Exam GENERAL: This is a well-nourished, well-developed patient, in no apparent distress. SKIN: No rashes, ecchymoses or lesions. Cool and dry. HEAD: Atraumatic. Normocephalic. No temporal or scalp tenderness. EYES: Pupils equal round and reactive. Extraocular motions intact. No scleral icterus. No injection or drainage. ENT: Nose without bleeding, purulent drainage or septal hematoma. Throat without erythema, tonsillar hypertrophy or exudate. Uvula midline. Airway patent. NECK: Trachea midline. No JVD or lymphadenopathy. Supple, nontender, no meningeal signs. CARDIOVASCULAR: Regular rate and rhythm without murmurs, gallops, or rubs. RESPIRATORY: Clear to auscultation. Breath sounds equal bilaterally. No wheezes , rales, or rhonchi. GASTROINTESTINAL: Abdomen soft, generalized tenderness, nondistended. No hepato- splenomegaly, or palpable masses. No guarding. MUSCULOSKELETAL: Extremities without clubbing, cyanosis, or edema. No joint tenderness, effusion, or edema noted. No calf tenderness. Negative Homans sign bilaterally. NEUROLOGICAL: Awake and alert. Cranial nerves II through XII intact. Motor and sensory grossly within normal limits. Five out of 5 muscle strength in all muscle groups. Normal speech. Laboratory Laboratory Tests Test 09/20/16 15:20 White Blood Count 14.4 Red Blood Count 5.18 Hemoglobin 16.2 Hematocrit 48.5 Mean Corpuscular Volume 93.5 Mean Corpuscular Hemoglobin 31.2 Mean Corpuscular Hemoglobin 33.4 Concent Red Cell Distribution Width 13.6 Platelet Count 134 Mean Platelet Volume 9.8 Neutrophils (%) (Auto) 74.6 Lymphocytes (%) (Auto) 18.1 Monocytes (%) (Auto) 6.5 Eosinophils (%) (Auto) 0.2 Basophils (%) (Auto) 0.6 Neutrophils # (Auto) 10.8 Lymphocytes # (Auto) 2.6 Monocytes # (Auto) 0.9 Eosinophils # (Auto) 0.0 Basophils # (Auto) 0.1 CBC Comment DIFF FINAL Differential Comment Prothrombin Time 10.9 Prothromb Time International 1.0 Ratio Activated Partial 23.9 Thromboplast Time Sodium Level 134 Potassium Level 3.7 Chloride Level 102 Carbon Dioxide Level 21.4 Anion Gap 11 Blood Urea Nitrogen 12 Creatinine 1.07 Estimat Glomerular Filtration 74 Rate Random Glucose 116 Lactic Acid Level 0.6 Calcium Level 9.0 Total Bilirubin 0.9 Aspartate Amino Transf 82 (AST/SGOT) Alkaline Phosphatase 121 Total Protein 7.7 Albumin 4.1 Lipase 5936 Result Diagram: 09/20/16 1520 09/20/16 1520 Assessment and Plan Assessment and Plan A/P - acute pancreatitis- likely due to alcohol keep NPO- start IV fluid- pain control and antiemetics as needed. CT of the abdomen pending- repeat lipase in am -reported black stool- check the stool for blood -hypertension; - vasotec as needed -DVT prophylaxis with SCD's Discussed Condition With ER and the patient. Physician Certification 2 Midnight Certification Type: Admission for Inpatient Services Order for Inpatient Services The services are ordered in accordance with Medicare regulations or non- Medicare payer requirements, as applicable. In the case of services not specified as inpatient-only, they are appropriately provided as inpatient services in accordance with the 2-midnight benchmark. Estimated LOS (days): 2 days is the estimated time the patient will need to remain in the hospital, assuming treatment plan goals are met and no additional complications. Post-Hospital Plan: Home Problem Qualifiers (1) Pancreatitis: Qualified Code: K85.90 - Acute pancreatitis, unspecified complication status, unspecified pancreatitis type Saurabh Terrell MD Sep 20, 2016 17:18
[2016-09-20] MEDS ORDERED: ONDANSETRON HCL 4 MG/2 ML VIAL IV PUSH PRN (17:45)
[2016-09-20] MEDS ORDERED: ENALAPRILAT 1.25 MG/ML VIAL IV PUSH PRN (17:45)
[2016-09-20] MEDS ORDERED: RESP: ALBUTEROL 1.25 MG/3 ML NEB (PRN) NEB (17:45)
[2016-09-20] MEDS ORDERED: IOHEXOL 350 MG/ML 10 ML VIAL (for RAD DIAG) IV ONE (18:11)
--- NOTE | 2016-09-20 18:43 | RADRPT ---
EXAM DATE/TIME: 09/20/2016 18:07 [facility] COMPARISON: CT ABDOMEN & PELVIS W CONTRAST, May 01, 2016, 10:57. INDICATIONS : Upper abdominal pain, nausea, vomiting; evaluate for pancreatitis. IV CONTRAST: 94 cc Omnipaque 350 (iohexol) IV ORAL CONTRAST: No oral contrast ingested. RADIATION DOSE: 15.94 CTDIvol (mGy) MEDICAL HISTORY : Hypertension. Chronic obstructive pulmonary disease. Pancreatitis.Bilateral inguinal hernia SURGICAL HISTORY : None. ENCOUNTER: Initial ACUITY: 1 day PAIN SCALE: 8/10 LOCATION: Bilateral upper quadrant TECHNIQUE: Volumetric scanning of the abdomen and pelvis was performed. Using automated exposure control and ad justment of the mA and/or kV according to patient size, radiation dose was kept as low as reasonably achievable to obtain optimal diagnostic quality images. FINDINGS: CT Abdomen: There is inflammation surrounding the pancreas involving the body and tail of the pancrea s without any abscess or pseudocyst formation. The enhancement of the pancreas appears intact and inf lammatory changes extend down into the Gerota's fascia on the left side. The spleen, kidneys, adrenal s are unremarkable. There is no evidence for any appreciable pathological adenopathy, free fluid, or bowel obstruction. The liver is fatty without focal lesions or technique. CT pelvis: There is no evidence for mass, abscess formation, or any significant adenopathy within the pelvis. CONCLUSION: Acute pancreatitis. Ananth Orellana MD on September 20, 2016 at 18:38 Board Certified Radiologist. This report was verified electronically.
[2016-09-20] MEDS: HYDROmorphone HCL PF 1 MG/ML VIAL IV PUSH PRN ×2 (18:56→23:15)
[2016-09-20 18:59] VITALS: BP 146/95
[2016-09-20 19:00] VITALS: O2SAT 98
[2016-09-20] MEDS: SODIUM CHLOR 0.9% 1000 ML INJ 1,000 ML IV SCH (19:30)
[2016-09-20 19:32] VITALS: BP 161/80; PULSE 119; RESP 17; O2SAT 96
[2016-09-20] MEDS ORDERED: PANTOPRAZOLE SODIUM 40 MG VIAL IV PUSH ONE (21:15)
[2016-09-20 21:20] VITALS: BP 159/100; PULSE 120; RESP 24; TEMP 99.8; O2SAT 95
[2016-09-21] VITALS (7 sets, daily range): BP systolic 136–181; BP diastolic 78–110; PULSE 105–126; RESP 18–26; TEMP 98.8–100.4; O2SAT 92–95
[2016-09-21] MEDS ORDERED: ACETAMINOPHEN 650 MG SUPP RECTAL PRN (01:15)
[2016-09-21] MEDS: HYDROmorphone HCL PF 1 MG/ML VIAL IV PUSH PRN ×7 (02:08→21:23)
[2016-09-21] MEDS: SODIUM CHLOR 0.9% 1000 ML INJ 1,000 ML IV SCH ×3 (02:08→18:00)
[2016-09-21] MEDS ORDERED: cloNIDine HCL 0.1 MG TAB PO ONE (02:15)
[2016-09-21 07:50] LABS: AUTOMATED NEUTROPHIL # 10.1 TH/MM3 (1.8-7.7); BASOPHIL # 0.1 TH/MM3 (0-0.2); BASOPHIL % 0.5 % (0.0-2.0); EOSINOPHIL % 0.1 % (0.0-4.0); HEMATOCRIT 43.6 % (39.0-51.0); LYMPH % 10.2 % (9.0-44.0); LYMPHOCYTE # 1.2 TH/MM3 (1.0-4.8); MEAN CELL VOLUME 94.2 FL (80.0-100.0); MEAN CORPUSCULAR HEMOGLOBIN 31.2 PG (27.0-34.0); MEAN CORPUSCULAR HGB CONC 33.2 % (32.0-36.0); NEUT % 83.2 % (16.0-70.0); PLATELET COUNT 96 TH/MM3 (150-450); RED BLOOD COUNT 4.63 MIL/MM3 (4.50-5.90); RED CELL DISTRIBUTION WIDTH 13.7 % (11.6-17.2); WHITE BLOOD COUNT 12.1 TH/MM3 (4.0-11.0)
[2016-09-21 07:55] LABS: HEMO FLAGS AUTO DIFF
--- NOTE | 2016-09-21 08:29 | HHI.PR ---
Subjective Remarks very uncomfortable with the abdominal pain. the pain hasn't improved as much compared to yesterday. has mild nausea. BP noted that was elevated over night. had low grade fever earlier. Objective Vitals Vital Signs Date Time Temp Pulse Resp B/P Pulse Ox O2 Delivery O2 Flow Rate FiO2 09/21/16 04:00 100.0 120 24 166/102 95 09/21/16 01:03 126 26 181/110 94 09/21/16 00:00 100.0 121 24 163/105 93 09/20/16 21:20 99.8 120 24 159/100 95 09/20/16 19:33 17 09/20/16 19:32 119 17 161/80 96 Room Air 09/20/16 19:00 98 Room Air 09/20/16 18:59 146/95 09/20/16 14:37 97.6 106 18 208/125 100 I/O 09/20/16 09/20/16 09/20/16 09/21/16 09/21/16 09/21/16 07:00 15:00 23:00 07:00 15:00 23:00 Output Total 200 ml 500 ml Balance -200 ml -500 ml Output Urine Total 200 ml 500 ml Result Diagram: 09/21/16 0704 09/20/16 1520 Imaging Last Impressions Abdomen/Pelvis CT 09/20/16 1636 Signed Impressions: Service Date/Time: September 18:07 - CONCLUSION: Acute pancreatitis. Ananth Orellana MD Objective Remarks GENERAL: uncomfortable with abdominal pain CARDIOVASCULAR: Regular rate and regular rhythm without murmurs, gallops, or rubs. RESPIRATORY: Clear to auscultation. Breath sounds equal bilaterally. No wheezes , rales, or rhonchi. GASTROINTESTINAL: Abdomen soft, generalized tenderness, nondistended. Normal, active bowel sounds MUSCULOSKELETAL: Extremities without clubbing, cyanosis, or edema. NEURO: Alert & Oriented x4 to person, place, time, situation. Moves all ext x4 Procedures none Medications and IVs Current Medications Morphine Sulfate (Morphine Inj) 4 mg ONCE ONCE IV PUSH Last administered on t 15:29; Start 09/20/16 at 15:15; Stop 09/20/16 at 15:16; Status DC Ondansetron HCl 4 mg 4 mg ONCE ONCE IVP Last administered on 09/20/16 15:30; Start 09/20/16 at 15:15; Stop 09/20/16 at 15:16; Status DC Sodium Chloride (NS 1000 ml Inj) 1,000 ml @ 1,000 mls/hr Q1H IV Last administered on 09/20/16 15:29; Start 09/20/16 at 15:09; Stop 09/20/16 at 16:08 ; Status DC Sodium Chloride (NS Flush) 2 ml UNSCH PRN IV FLUSH FLUSH AFTER USING IV ACCESS ; Start 09/20/16 at 15:15 Ketorolac Tromethamine 30 mg 30 mg ONCE ONCE IVP Last administered on 15:29; Start 09/20/16 at 15:15; Stop 09/20/16 at 15:16; Status DC Sodium Chloride (NS 1000 ml Inj) 1,000 ml @ 999 mls/hr BOLUS ONCE IV Last administered on 09/20/16 16:50; Start 09/20/16 at 16:45; Stop 09/20/16 at 17:45 ; Status DC Hydromorphone HCl 1 mg 1 mg ONCE ONCE IV PUSH Last administered on 09/20/16 16:50; Start 09/20/16 at 16:45; Stop 09/20/16 at 16:46; Status DC Sodium Chloride (NS 1000 ml Inj) 1,000 ml @ 125 mls/hr Q8H IV Last administered on 09/21/16 02:08; Start 09/20/16 at 18:00 Ondansetron HCl (Zofran Inj) 4 mg Q8HR PRN IV PUSH NAUSEA; Start 09/20/16 at 17 :45 Albuterol Sulfate (Albuterol Neb) 1.25 mg Q6HR NEB PRN NEB SHORTNESS OF BREATH ; Start 09/20/16 at 17:45 Enalaprilat (Vasotec Inj) 1.25 mg Q8H PRN IV PUSH SBP> OR = 180, DBP> OR = 100 Last administered on 09/21/16 00:00; Start 09/20/16 at 17:45 Hydromorphone HCl (Dilaudid Pf Inj) 1 mg Q4H PRN IV PUSH PAIN Last administered on 09/20/16 23:15; Start 09/20/16 at 17:45; Stop 09/21/16 at 00:39 ; Status DC Iohexol (Omnipaque 350 Inj) 94 ml STK-MED ONCE IV Last administered on 18:11; Start 09/20/16 at 18:11; Stop 09/20/16 at 18:12; Status DC Pantoprazole Sodium (Protonix Inj) 40 mg ONCE ONCE IV PUSH Last administered on 09/20/16 21:23; Start 09/20/16 at 21:15; Stop 09/20/16 at 21:16; Status DC Pantoprazole Sodium (Protonix Inj) 40 mg Q12H IV PUSH ; Start 09/21/16 at 09:00 Hydromorphone HCl (Dilaudid Pf Inj) 1 mg ONCE ONCE IV PUSH Last administered on 09/20/16 21:22; Start 09/20/16 at 21:15; Stop 09/20/16 at 21:16; Status DC Hydromorphone HCl (Dilaudid Pf Inj) 1 mg Q3H PRN IV PUSH PAIN 1-10 Last administered on 09/21/16 05:12; Start 09/21/16 at 00:45 Acetaminophen (Tylenol Supp) 650 mg Q6H PRN RECTAL fever > 100.4; Start at 01:15 Clonidine (Catapres) 0.1 mg ONCE ONCE PO Last administered on 09/21/16 02:27 ; Start 09/21/16 at 02:15; Stop 09/21/16 at 02:18; Status DC A/P Assessment and Plan A/P - SIRS due to acute pancreatitis- likely due to alcohol- still with significant pain continue to keep NPO- continue IV fluid- will increase IV Dilaudid for better pain control- CT of the abdomen with acute pancreatitis- continue to monitor lipase- -alcohol abuse; will watch for alcohol withdrawal- counselled on drinking cessation. -reported black stool- stool for blood pending. -hypertension; - vasotec/clonidine as needed -DVT prophylaxis with SCD's Saurabh Terrell MD Sep 21, 2016 08:29
[2016-09-21] MEDS ORDERED: cloNIDine HCL 0.1 MG TAB PO PRN (08:30)
[2016-09-21 08:33] LABS: ALKALINE PHOSPHATASE 88 U/L (45-117); ALT (GPT) 51 U/L (12-78); ANION GAP 8 MEQ/L (5-15); AST (GOT) 44 U/L (15-37); BICARBONATE 23.3 MEQ/L (21.0-32.0); BLOOD UREA NITROGEN 7 MG/DL (7-18); CHLORIDE 105 MEQ/L (98-107); GLOMERULAR FILTRATION RATE 90 ML/MIN (>89); POTASSIUM 3.6 MEQ/L (3.5-5.1); SODIUM (NA) 136 MEQ/L (136-145); TOTAL BILIRUBIN ADULT 0.9 MG/DL (0.2-1.0)
[2016-09-21] MEDS ORDERED: LORazepam 1 MG TAB PO PRN (08:45)
[2016-09-21] MEDS ORDERED: LORazepam 2 MG/ML VIAL IV PUSH PRN ×4 (08:45)
[2016-09-21] MEDS ORDERED: LORazepam 2 MG TAB PO PRN (08:45)
[2016-09-21] MEDS ORDERED: HYDROmorphone HCL PF 1 MG/ML VIAL IV PUSH ONE (08:45)
[2016-09-21] MEDS ORDERED: FLUMAZENIL 0.5 MG/5 ML VIAL IV PUSH PRN (08:45)
[2016-09-21 08:50] LABS: BANDS 15 % (0-6); NEUTROPHIL # MANUAL DIFF 10.5 TH/MM3 (1.8-7.7); PLATELET ESTIMATE SMEAR LOW (NORMAL); PLATELET MORPHOLOGY NORMAL (NORMAL); POLYS (SEG NEUTROPHILS) 72 % (16-70); SCAN/DIFF FINAL DIFF MANUAL; WBC DIFF SAMPLE 100
[2016-09-21 08:51] LABS: STOMATOCYTES 1+ (NORMAL)
[2016-09-21] MEDS: PANTOPRAZOLE SODIUM 40 MG VIAL IV PUSH SCH ×2 (09:09→21:25)
[2016-09-22] VITALS: BP 130/69; PULSE 117; RESP 18; TEMP 99.4; O2SAT 93
[2016-09-22] MEDS: HYDROmorphone HCL PF 1 MG/ML VIAL IV PUSH PRN ×5 (00:20→21:46)
[2016-09-22] MEDS: SODIUM CHLOR 0.9% 1000 ML INJ 1,000 ML IV SCH ×4 (03:21→21:50)
[2016-09-22 04:00] VITALS: BP 127/72; PULSE 88; RESP 17; TEMP 98.4; O2SAT 94
[2016-09-22 07:37] LABS: AUTOMATED NEUTROPHIL # 8.8 TH/MM3 (1.8-7.7); BASOPHIL % 0.3 % (0.0-2.0); EOSINOPHIL # 0.1 TH/MM3 (0-0.4); EOSINOPHIL % 0.5 % (0.0-4.0); HEMATOCRIT 41.6 % (39.0-51.0); HEMO FLAGS DIFF FINAL; LYMPH % 13.8 % (9.0-44.0); LYMPHOCYTE # 1.6 TH/MM3 (1.0-4.8); MEAN CELL VOLUME 94.4 FL (80.0-100.0); MEAN CORPUSCULAR HEMOGLOBIN 31.1 PG (27.0-34.0); MEAN CORPUSCULAR HGB CONC 32.9 % (32.0-36.0); MONO % 8.9 % (0.0-8.0); NEUT % 76.5 % (16.0-70.0); PLATELET COUNT 106 TH/MM3 (150-450); RED BLOOD COUNT 4.41 MIL/MM3 (4.50-5.90); RED CELL DISTRIBUTION WIDTH 13.7 % (11.6-17.2); WHITE BLOOD COUNT 11.6 TH/MM3 (4.0-11.0)
--- NOTE | 2016-09-22 07:55 | HHI.PR ---
Subjective Remarks looks more comfortable today. abdominal pain is better. no nausea or vomiting and could tolerate the clear liquid diet. had low grade fever earlier. Objective Vitals Vital Signs Date Time Temp Pulse Resp B/P Pulse Ox O2 Delivery O2 Flow Rate FiO2 09/22/16 04:00 98.4 88 17 127/72 94 09/22/16 00:00 99.4 117 18 130/69 93 09/21/16 20:00 100.4 120 18 136/78 95 09/21/16 16:00 100.2 126 18 166/105 94 09/21/16 12:00 98.8 107 18 156/96 93 09/21/16 08:00 99.9 105 18 138/103 92 I/O 09/21/16 09/21/16 09/21/16 09/22/16 09/22/16 09/22/16 07:00 15:00 23:00 07:00 15:00 23:00 Intake Total 240 ml Output Total 500 ml 250 ml 750 ml 400 ml Balance -500 ml -250 ml -750 ml -160 ml Intake Oral 240 ml Output Urine Total 500 ml 250 ml 750 ml 400 ml Result Diagram: 09/22/16 0650 09/21/16 0704 Imaging Last Impressions Abdomen/Pelvis CT 09/20/16 1636 Signed Impressions: Service Date/Time: September 18:07 - CONCLUSION: Acute pancreatitis. Ananth Orellana MD Objective Remarks GENERAL: uncomfortable with abdominal pain CARDIOVASCULAR: Regular rate and regular rhythm without murmurs, gallops, or rubs. RESPIRATORY: Clear to auscultation. Breath sounds equal bilaterally. No wheezes , rales, or rhonchi. GASTROINTESTINAL: Abdomen soft, generalized tenderness improved, nondistended. Normal, active bowel sounds MUSCULOSKELETAL: Extremities without clubbing, cyanosis, or edema. NEURO: Alert & Oriented x4 to person, place, time, situation. Moves all ext x4 Procedures none Medications and IVs Current Medications Morphine Sulfate (Morphine Inj) 4 mg ONCE ONCE IV PUSH Last administered on 15:29; Start 09/20/16 at 15:15; Stop 09/20/16 at 15:16; Status DC Ondansetron HCl 4 mg 4 mg ONCE ONCE IVP Last administered on 09/20/16 15:30; Start 09/20/16 at 15:15; Stop 09/20/16 at 15:16; Status DC Sodium Chloride (NS 1000 ml Inj) 1,000 ml @ 1,000 mls/hr Q1H IV Last administered on 09/20/16 15:29; Start 09/20/16 at 15:09; Stop 09/20/16 at 16:08 ; Status DC Sodium Chloride (NS Flush) 2 ml UNSCH PRN IV FLUSH FLUSH AFTER USING IV ACCESS ; Start 09/20/16 at 15:15 Ketorolac Tromethamine 30 mg 30 mg ONCE ONCE IVP Last administered on 15:29; Start 09/20/16 at 15:15; Stop 09/20/16 at 15:16; Status DC Sodium Chloride (NS 1000 ml Inj) 1,000 ml @ 999 mls/hr BOLUS ONCE IV Last administered on 09/20/16 16:50; Start 09/20/16 at 16:45; Stop 09/20/16 at 17:45 ; Status DC Hydromorphone HCl 1 mg 1 mg ONCE ONCE IV PUSH Last administered on 09/20/16 16:50; Start 09/20/16 at 16:45; Stop 09/20/16 at 16:46; Status DC Sodium Chloride (NS 1000 ml Inj) 1,000 ml @ 125 mls/hr Q8H IV Last administered on 09/22/16 03:21; Start 09/20/16 at 18:00 Ondansetron HCl (Zofran Inj) 4 mg Q8HR PRN IV PUSH NAUSEA; Start 09/20/16 at 17 :45 Albuterol Sulfate (Albuterol Neb) 1.25 mg Q6HR NEB PRN NEB SHORTNESS OF BREATH ; Start 09/20/16 at 17:45 Enalaprilat (Vasotec Inj) 1.25 mg Q8H PRN IV PUSH SBP> OR = 180, DBP> OR = 100 Last administered on 09/21/16 00:00; Start 09/20/16 at 17:45 Hydromorphone HCl (Dilaudid Pf Inj) 1 mg Q4H PRN IV PUSH PAIN Last administered on 09/20/16 23:15; Start 09/20/16 at 17:45; Stop 09/21/16 at 00:39 ; Status DC Iohexol (Omnipaque 350 Inj) 94 ml STK-MED ONCE IV Last administered on 18:11; Start 09/20/16 at 18:11; Stop 09/20/16 at 18:12; Status DC Pantoprazole Sodium (Protonix Inj) 40 mg ONCE ONCE IV PUSH Last administered on 09/20/16 21:23; Start 09/20/16 at 21:15; Stop 09/20/16 at 21:16; Status DC Pantoprazole Sodium (Protonix Inj) 40 mg Q12H IV PUSH Last administered on 09/21 21:25; Start 09/21/16 at 09:00 Hydromorphone HCl (Dilaudid Pf Inj) 1 mg ONCE ONCE IV PUSH Last administered on 09/20/16 21:22; Start 09/20/16 at 21:15; Stop 09/20/16 at 21:16; Status DC Hydromorphone HCl (Dilaudid Pf Inj) 1 mg Q3H PRN IV PUSH PAIN 1-10 Last administered on 09/21/16 08:15; Start 09/21/16 at 00:45; Stop 09/21/16 at 08:17 ; Status DC Acetaminophen (Tylenol Supp) 650 mg Q6H PRN RECTAL fever > 100.4; Start at 01:15 Clonidine (Catapres) 0.1 mg ONCE ONCE PO Last administered on 09/21/16 02:27 ; Start 09/21/16 at 02:15; Stop 09/21/16 at 02:18; Status DC Hydromorphone HCl (Dilaudid Pf Inj) 1.5 mg Q3H PRN IV PUSH PAIN 1-10 Last administered on 09/22/16 06:51; Start 09/21/16 at 10:00 Hydromorphone HCl (Dilaudid Pf Inj) 0.5 mg ONCE ONCE IV PUSH Last administered on 09/21/16 09:10; Start 09/21/16 at 08:45; Stop 09/21/16 at 08:46 ; Status DC Clonidine (Catapres) 0.1 mg Q8HR PRN PO SBP> OR = 180, DBP> OR = 100 Last administered on 09/21/16 18:24; Start 09/21/16 at 08:30 Flumazenil (Romazicon Inj) 0.2 mg Q1M PRN IV PUSH SEE LABEL COMMENTS; Start at 08:45 Lorazepam (Ativan) 1 mg Q4H PRN PO CIWA 8 - 10; Start 09/21/16 at 08:45 Lorazepam (Ativan Inj) 1 mg Q4H PRN IV PUSH CIWA 8 - 10; Start 09/21/16 at 08: 45 Lorazepam (Ativan) 2 mg Q2H PRN PO CIWA 11-14; Start 09/21/16 at 08:45 Lorazepam (Ativan Inj) 2 mg Q2H PRN IV PUSH CIWA 11-14; Start 09/21/16 at 08:45 Lorazepam (Ativan Inj) 2 mg Q1H PRN IV PUSH CIWA 15-20; Start 09/21/16 at 08:45 Lorazepam (Ativan Inj) 2 mg Q15M PRN IV PUSH CIWA > 20; Start 09/21/16 at 08:45 A/P Assessment and Plan A/P - SIRS due to acute pancreatitis- likely due to alcohol- improved clinically. advance the diet to full liquid- continue with pain control. CT of the abdomen with acute pancreatitis- -alcohol abuse; will watch for alcohol withdrawal- counselled on drinking cessation. -reported black stool- stool for blood pending- H/H stable. -hypertension; - BP better- vasotec/clonidine as needed -DVT prophylaxis with SCD's Discharge Planning dc home within the next 24-28 hrs if continues to improve. Saurabh Terrell MD Sep 22, 2016 07:55
[2016-09-22 08:00] VITALS: BP 135/89; PULSE 116; RESP 18; TEMP 98; O2SAT 93
[2016-09-22] MEDS ORDERED: ACETAMINOPHEN/HYDROcodone 325 MG/5 MG TAB PO PRN (09:00)
[2016-09-22] MEDS: ACETAMINOPHEN/HYDROcodone 325 MG/5 MG TAB PO PRN ×3 (10:21→20:13)
[2016-09-22] MEDS: PANTOPRAZOLE SODIUM 40 MG VIAL IV PUSH SCH ×2 (10:21→21:46)
[2016-09-22 12:00] VITALS: BP 128/83; PULSE 80; RESP 18; TEMP 98; O2SAT 92
[2016-09-22 16:00] VITALS: BP 140/87; PULSE 84; RESP 18; TEMP 98.3; O2SAT 93
[2016-09-22 20:00] VITALS: BP 137/89; PULSE 117; RESP 19; TEMP 96.5; O2SAT 95
[2016-09-23] VITALS: BP 129/78; PULSE 65; RESP 18; TEMP 97.3; O2SAT 95
[2016-09-23] MEDS: ACETAMINOPHEN/HYDROcodone 325 MG/5 MG TAB PO PRN ×3 (01:28→12:30)
[2016-09-23 04:00] VITALS: BP 132/79; PULSE 88; RESP 19; TEMP 97.5; O2SAT 95
[2016-09-23 08:00] VITALS: BP 124/73; PULSE 98; RESP 16; TEMP 97.8; O2SAT 96
--- NOTE | 2016-09-23 08:11 | HHI.PR ---
Subjective Remarks looks and feels better. abdominal pain has improved. tolerated the liquid diet. no fever. d/w the RN and no acute issues over night. Objective Vitals Vital Signs Date Time Temp Pulse Resp B/P Pulse Ox O2 Delivery O2 Flow Rate FiO2 09/23/16 04:00 97.5 88 19 132/79 95 09/23/16 00:00 97.3 65 18 129/78 95 09/22/16 20:00 96.5 117 19 137/89 95 09/22/16 16:00 98.3 84 18 140/87 93 09/22/16 12:00 98.0 80 18 128/83 92 I/O 09/22/16 09/22/16 09/22/16 09/23/16 09/23/16 09/23/16 07:00 15:00 23:00 07:00 15:00 23:00 Intake Total 240 ml 720 ml 1300 ml Output Total 400 ml 450 ml Balance -160 ml 720 ml 850 ml Intake Oral 240 ml 720 ml IV Total 1300 ml Output Urine Total 400 ml 450 ml # Voids 4 # Bowel Movements 0 Result Diagram: 09/22/16 0650 09/21/16 0704 Imaging Last Impressions Abdomen/Pelvis CT 09/20/16 1636 Signed Impressions: Service Date/Time: September 18:07 - CONCLUSION: Acute pancreatitis. Ananth Orellana MD Objective Remarks GENERAL: uncomfortable with abdominal pain CARDIOVASCULAR: Regular rate and regular rhythm without murmurs, gallops, or rubs. RESPIRATORY: Clear to auscultation. Breath sounds equal bilaterally. No wheezes , rales, or rhonchi. GASTROINTESTINAL: Abdomen soft, generalized tenderness improved, nondistended. Normal, active bowel sounds MUSCULOSKELETAL: Extremities without clubbing, cyanosis, or edema. NEURO: Alert & Oriented x4 to person, place, time, situation. Moves all ext x4 Procedures none Medications and IVs Current Medications Morphine Sulfate (Morphine Inj) 4 mg ONCE ONCE IV PUSH Last administered on 15:29; Start 09/20/16 at 15:15; Stop 09/20/16 at 15:16; Status DC Ondansetron HCl 4 mg 4 mg ONCE ONCE IVP Last administered on 09/20/16 15:30; Start 09/20/16 at 15:15; Stop 09/20/16 at 15:16; Status DC Sodium Chloride (NS 1000 ml Inj) 1,000 ml @ 1,000 mls/hr Q1H IV Last administered on 09/20/16 15:29; Start 09/20/16 at 15:09; Stop 09/20/16 at 16:08 ; Status DC Sodium Chloride (NS Flush) 2 ml UNSCH PRN IV FLUSH FLUSH AFTER USING IV ACCESS ; Start 09/20/16 at 15:15 Ketorolac Tromethamine 30 mg 30 mg ONCE ONCE IVP Last administered on 15:29; Start 09/20/16 at 15:15; Stop 09/20/16 at 15:16; Status DC Sodium Chloride (NS 1000 ml Inj) 1,000 ml @ 999 mls/hr BOLUS ONCE IV Last administered on 09/20/16 16:50; Start 09/20/16 at 16:45; Stop 09/20/16 at 17:45 ; Status DC Hydromorphone HCl 1 mg 1 mg ONCE ONCE IV PUSH Last administered on 09/20/16 16:50; Start 09/20/16 at 16:45; Stop 09/20/16 at 16:46; Status DC Sodium Chloride (NS 1000 ml Inj) 1,000 ml @ 125 mls/hr Q8H IV Last administered on 09/22/16 21:50; Start 09/20/16 at 18:00 Ondansetron HCl (Zofran Inj) 4 mg Q8HR PRN IV PUSH NAUSEA; Start 09/20/16 at 17 :45 Albuterol Sulfate (Albuterol Neb) 1.25 mg Q6HR NEB PRN NEB SHORTNESS OF BREATH ; Start 09/20/16 at 17:45 Enalaprilat (Vasotec Inj) 1.25 mg Q8H PRN IV PUSH SBP> OR = 180, DBP> OR = 100 Last administered on 09/21/16 00:00; Start 09/20/16 at 17:45 Hydromorphone HCl (Dilaudid Pf Inj) 1 mg Q4H PRN IV PUSH PAIN Last administered on 09/20/16 23:15; Start 09/20/16 at 17:45; Stop 09/21/16 at 00:39 ; Status DC Iohexol (Omnipaque 350 Inj) 94 ml STK-MED ONCE IV Last administered on 18:11; Start 09/20/16 at 18:11; Stop 09/20/16 at 18:12; Status DC Pantoprazole Sodium (Protonix Inj) 40 mg ONCE ONCE IV PUSH Last administered on 09/20/16 21:23; Start 09/20/16 at 21:15; Stop 09/20/16 at 21:16; Status DC Pantoprazole Sodium (Protonix Inj) 40 mg Q12H IV PUSH Last administered on 09/22 21:46; Start 09/21/16 at 09:00 Hydromorphone HCl (Dilaudid Pf Inj) 1 mg ONCE ONCE IV PUSH Last administered on 09/20/16 21:22; Start 09/20/16 at 21:15; Stop 09/20/16 at 21:16; Status DC Hydromorphone HCl (Dilaudid Pf Inj) 1 mg Q3H PRN IV PUSH PAIN 1-10 Last administered on 09/21/16 08:15; Start 09/21/16 at 00:45; Stop 09/21/16 at 08:17 ; Status DC Acetaminophen (Tylenol Supp) 650 mg Q6H PRN RECTAL fever > 100.4; Start at 01:15 Clonidine (Catapres) 0.1 mg ONCE ONCE PO Last administered on 09/21/16 02:27 ; Start 09/21/16 at 02:15; Stop 09/21/16 at 02:18; Status DC Hydromorphone HCl (Dilaudid Pf Inj) 1.5 mg Q3H PRN IV PUSH PAIN 1-10 Last administered on 09/22/16 06:51; Start 09/21/16 at 10:00; Stop 09/22/16 at 07:58 ; Status DC Hydromorphone HCl (Dilaudid Pf Inj) 0.5 mg ONCE ONCE IV PUSH Last administered on 09/21/16 09:10; Start 09/21/16 at 08:45; Stop 09/21/16 at 08:46 ; Status DC Clonidine (Catapres) 0.1 mg Q8HR PRN PO SBP> OR = 180, DBP> OR = 100 Last administered on 09/21/16 18:24; Start 09/21/16 at 08:30 Flumazenil (Romazicon Inj) 0.2 mg Q1M PRN IV PUSH SEE LABEL COMMENTS; Start at 08:45 Lorazepam (Ativan) 1 mg Q4H PRN PO CIWA 8 - 10; Start 09/21/16 at 08:45 Lorazepam (Ativan Inj) 1 mg Q4H PRN IV PUSH CIWA 8 - 10; Start 09/21/16 at 08: 45 Lorazepam (Ativan) 2 mg Q2H PRN PO CIWA 11-14; Start 09/21/16 at 08:45 Lorazepam (Ativan Inj) 2 mg Q2H PRN IV PUSH CIWA 11-14; Start 09/21/16 at 08:45 Lorazepam (Ativan Inj) 2 mg Q1H PRN IV PUSH CIWA 15-20; Start 09/21/16 at 08:45 Lorazepam (Ativan Inj) 2 mg Q15M PRN IV PUSH CIWA > 20; Start 09/21/16 at 08:45 Acetaminophen/ Hydrocodone Bitart ([place] 5-325 Mg) 1 tab Q4H PRN PO SEE LABEL COMMENTS; Start 09/22/16 at 09:00 Acetaminophen/ Hydrocodone Bitart ([place] 5-325 Mg) 2 tab Q4H PRN PO SEE LABEL COMMENTS Last administered on 09/23/16 01:28; Start 09/22/16 at 09:00 Hydromorphone HCl (Dilaudid Pf Inj) 1 mg Q4H PRN IV PUSH BREAKTHROUGH PAIN Last administered on 09/22/16 21:46; Start 09/22/16 at 08:00 A/P Assessment and Plan A/P - SIRS due to acute pancreatitis- likely due to alcohol- improved clinically. advance the diet to low fat diet- continue with pain control. CT of the abdomen with acute pancreatitis- -alcohol abuse; l- counselled on drinking cessation. -hypertension; - BP better- vasotec/clonidine as needed -DVT prophylaxis with SCD's Discharge Planning dc home today if tolerates the diet. see med list. d/w the patient and RN. f/u; pcp. Saurabh Terrell MD Sep 23, 2016 08:11
[2016-09-23] MEDS ORDERED: MULT1TAB84 PO (08:13)
[2016-09-23] MEDS ORDERED: HYDR-3516 PO (08:13)
[2016-09-23] MEDS ORDERED: THIA100T PO (08:13)
--- NOTE | 2016-09-23 08:13 | HHI.DCPOC ---
Discharge Care Plan Diagnosis: (1) Pancreatitis Your Health Problems Are: Inflammation Goals to Promote Your Health * To prevent worsening of your condition and complications * To maintain your health at the optimal level Directions to Meet Your Goals Take your medications as prescribed Follow your dietary instruction Follow activity as directed Keep your appointments as scheduled Take your immunizations and boosters as scheduled If your symptoms worsen call your PCP, if no PCP go to Urgent Care Center or Emergency Room Smoking is Dangerous to Your Health. Avoid second hand smoke Call the 24-hour hour crisis hotline for domestic abuse at Saurabh Terrell MD Sep 23, 2016 08:13
--- NOTE | 2016-09-23 08:13 | HHI.DS ---
Discharge Summary Admission Date Sep 20, 2016 at 16:51 Discharge Date: Sep 23, 2016 Admitting Diagnosis Pancreatitis (1) Pancreatitis ICD Code: K85.9 Diagnosis: Principal Procedures none Brief History - From Admission patient is a 46 y/o male with history of alcohol abuse and pancreatitis presented to ER with abdominal pain. he says that the pain started two days ago. pain is epigastric with no radiation. pain was severe in intensity and associated with nausea, vomiting and diarrhea with occasional black stools. he says that he had a cheeseburger and beer yesterday which made the pain much worse. he denies any fever or chills. CBC/BMP: 09/22/16 0650 09/21/16 0704 Significant Findings Laboratory Tests Test 09/20/16 09/21/16 09/22/16 15:20 07:04 06:50 Activated Partial 23.9 SEC Thromboplast Time (24.3-30.1) Sodium Level 134 MEQ/L (136-145) Estimat Glomerular Filtration 74 ML/MIN (>89) Rate Random Glucose 116 MG/DL 124 MG/DL (74-106) (74-106) Aspartate Amino Transf 82 U/L (15-37) 44 U/L (15-37) (AST/SGOT) Alanine Aminotransferase 84 U/L (12-78) (ALT/SGPT) Alkaline Phosphatase 121 U/L (45-117) Lipase 5936 U/L 1049 U/L (73-393) (73-393) White Blood Count 14.4 TH/MM3 12.1 TH/MM3 11.6 TH/MM3 (4.0-11.0) (4.0-11.0) (4.0-11.0) Platelet Count 134 TH/MM3 96 TH/MM3 106 TH/MM3 (150-450) (150-450) (150-450) Neutrophils (%) (Auto) 74.6 % 83.2 % 76.5 % (16.0-70.0) (16.0-70.0) (16.0-70.0) Neutrophils # (Auto) 10.8 TH/MM3 10.1 TH/MM3 8.8 TH/MM3 (1.8-7.7) (1.8-7.7) (1.8-7.7) Neutrophils % (Manual) 72 % (16-70) Band Neutrophils % 15 % (0-6) Neutrophils # (Manual) 10.5 TH/MM3 (1.8-7.7) Platelet Estimate LOW (NORMAL) Stomatocytes 1+ (NORMAL) Calcium Level 8.2 MG/DL (8.5-10.1) Albumin 3.1 GM/DL (3.4-5.0) Red Blood Count 4.41 MIL/MM3 (4.50-5.90) Monocytes (%) (Auto) 8.9 % (0.0-8.0) Monocytes # (Auto) 1.0 TH/MM3 (0-0.9) Imaging Last Impressions Abdomen/Pelvis CT 09/20/16 1636 Signed Impressions: Service Date/Time: September 18:07 - CONCLUSION: Acute pancreatitis. Annath Orellana MD PE at Discharge GENERAL: uncomfortable with abdominal pain CARDIOVASCULAR: Regular rate and regular rhythm without murmurs, gallops, or rubs. RESPIRATORY: Clear to auscultation. Breath sounds equal bilaterally. No wheezes , rales, or rhonchi. GASTROINTESTINAL: Abdomen soft, generalized tenderness improved, nondistended. Normal, active bowel sounds MUSCULOSKELETAL: Extremities without clubbing, cyanosis, or edema. NEURO: Alert & Oriented x4 to person, place, time, situation. Moves all ext x4 Hospital Course - SIRS due to acute pancreatitis- likely due to alcohol- improved clinically. advance the diet to low fat diet- continue with pain control. CT of the abdomen with acute pancreatitis- -alcohol abuse; l- counselled on drinking cessation. -hypertension; - BP better- vasotec/clonidine as needed -DVT prophylaxis with SCD's Pt Condition on Discharge: Fair Discharge Disposition: Discharge Home Discharge Time: <= 30 minutes Discharge Instructions DIET: Follow Instructions for: Heart Healthy Diet, Low Fat Diet Activities you can perform: Regular-No Restrictions Follow up Referrals: PCP Follow-up New Medications: Multiple Vitamins W/ Minerals (Multivitamin Adults) 1 Tab 1 TAB PO DAILY Nutritional Supplement Days 30 Ref 0 TAB Thiamine (Thiamine) 100 Mg Tab 100 MG PO DAILY Nutritional Supplement Days 30 Ref 0 TAB Hydrocodone-Acetaminophen (Hydrocodone-Acetaminophen) 5-325 mg Tab 1 TAB PO Q6HR PRN pain #14 Ref 0 TAB Continued Medications: Albuterol Neb (Albuterol Neb) 2.5 Mg/3 Ml Neb 2.5 MG NEB Q4HR NEB While awake Breathing Treatment #60 Ref 0 NEBULE Lisinopril (Lisinopril) 20 Mg Tab 20 MG PO DAILY #30 Ref 0 TAB Lisinopril (Lisinopril) 20 Mg Tab 20 MG PO DAILY #30 Ref 0 TAB Lisinopril (Lisinopril) 20 Mg Tab 20 MG PO DAILY #30 Ref 0 TAB Saurabh Terrell MD Sep 23, 2016 08:13
[2016-09-23] MEDS: PANTOPRAZOLE SODIUM 40 MG VIAL IV PUSH SCH (08:32)
[2016-09-23] MEDS: SODIUM CHLOR 0.9% 1000 ML INJ 1,000 ML IV SCH (10:00)
[2016-09-23 12:00] VITALS: BP 120/79; PULSE 101; RESP 18; TEMP 98.4; O2SAT 97
== END 2016-09-23 13:36 | disposition home or self-care (01) | DRG 439 ==
LOC: NEDAMB 14:30 → NEDA 16:51 → HOCB 21:24
PROVIDERS: ADMIT Internal Medicine; ATTEND Internal Medicine
DX: K85.20 Alcohol induced acute pancreatitis without necrosis or infection (principal); R65.10 Systemic inflammatory response syndrome (SIRS) of non-infectious origin without acute organ dysfunction; F10.10 Alcohol abuse, uncomplicated; I10 Essential (primary) hypertension; F17.210 Nicotine dependence, cigarettes, uncomplicated
CPT/HCPCS: 74177; 80053; 83605; 83690; 85007; 85025; 85027; 85610; 85730; 96361; 96374; 96375; C9113; J1170; J1885; J2270; J2405; J7030; Q9967

== ENCOUNTER 2017-03-12 13:53 | Observation (INO) | payer SELFPAY ==
[~2017-03-12] VITALS: Ht 165.1 cm; Wt 100.0 kg
[2017-03-12] VITALS (9 sets, daily range): BP systolic 153–185; BP diastolic 88–114; PULSE 89–104; RESP 14–18; TEMP 97.6–98.5; O2SAT 95–99
[~2017-03-12 13:53] MED LIST changes: +HYDR-3516 PO; +MULT1TAB84 PO; +THIA100T PO
--- NOTE | 2017-03-12 13:59 | PD ---
Physical Exam Date Seen by Provider: Mar 12, 2017 Time Seen by Provider: 13:57 Narrative 46 yo male here for evaluation of dizziness, chest discomfort, SOB and HTN. per patient he has been out of his meds for more than a month and for the past week he has been having this symptoms. Yesterday he has a syncopal episode. Feels his BP is elevated. Vitals stable in triage. Awaiting bed placement. Data Data Last Documented VS Vital Signs Date Time Temp Pulse Resp B/P (MAP) Pulse Ox O2 Delivery O2 Flow Rate FiO2 03/12/17 13:56 98.4 103 14 185/114 (137) 95 Room Air [facility] Medical Record Reviewed: Yes Supervised Visit with PRISCA: No Jesus Smith Mar 12, 2017 13:59
--- NOTE | 2017-03-12 14:45 | RADRPT ---
EXAM DATE/TIME: 03/12/2017 14:34 [place] COMPARISON: No previous studies available for comparison. INDICATIONS : Chest pain, shortness of breath, and dizziness. MEDICAL HISTORY : Hypertension. Chronic obstructive pulmonary disease. Cardiovascular disease. SURGICAL HISTORY : None. ENCOUNTER: Initial ACUITY: 1 day PAIN SCORE: 3/10 LOCATION: Bilateral chest FINDINGS: PA and lateral views of the chest demonstrate the lungs to be symmetrically aerated without evidence of mass, infiltrate or effusion. The cardiomediastinal contours are unremarkable. Osseous structure s are intact. CONCLUSION: 1. No acute cardiopulmonary disease. Esteban Clay MD on March 12, 2017 at 14:43 Board Certified Radiologist. This report was verified electronically.
[2017-03-12] MEDS ORDERED: FURO20TA PO (15:35)
[2017-03-12] MEDS ORDERED: POTA-53 PO (15:35)
--- NOTE | 2017-03-12 15:44 | PD ---
HPI Chief Complaint: chest pain Time Seen by Provider: 15:34 Travel History International Travel<30 days: No Contact w/Intl Traveler<30days: No Traveled to known affect area: No History of Present Illness HPI 46 y/o male presents with chest pressure that is been present over the past couple of weeks. He also states he feels lightheaded and dizzy. He states he has been off his blood pressure medication for a couple months because he doesn' t have insurance. He denies any prior heart issues but does not follow with a doctor regularly. He denies taking an aspirin yet today. He denies other concurrent complaints. Quality is pressure. Severity is moderate. He denies specific modifying factors. He denies migration the pain. Patient states he is supposed to be on lisinopril and he thinks Lasix. PFSH Past Medical History Cancer: No Cardiovascular Problems: Yes High Cholesterol: Yes COPD: Yes Diminished Hearing: No Endocrine: No Gastrointestinal Disorders: Yes (pancreatitis) Genitourinary: No Hypertension: Yes Immune Disorder: No Musculoskeletal: No Neurologic: No Psychiatric: No Reproductive: No Respiratory: Yes Immunizations Current: Yes Pancreatitis: Yes Triglycerides - High: Yes Past Surgical History Abdominal Surgery: Yes (BILATERAL INGUINAL HERNIAS) Other Surgery: Yes Social History Alcohol Use: No Tobacco Use: Yes (1/2 ppd) Substance Use: No Allergies-Medications (Allergen,Severity, Reaction): Coded Allergies: oxycodone (Unverified Allergy, Severe, Hives, 03/12/17) Reported Meds & Prescriptions Reported Meds & Active Scripts Active Albuterol Neb (Albuterol Sulfate) 2.5 Mg/3 Ml Neb 2.5 Mg NEB Q4HR NEB While awake Reported Potassium Chloride 1 Pow Pow 10 Meq PO DAILY Furosemide 20 Mg Tab 20 Mg PO DAILY Lisinopril 20 Mg Tab 20 Mg PO DAILY Review of Systems Except as stated in HPI: all other systems reviewed are Neg Physical Exam Narrative GENERAL: Well-nourished, well-developed patient. SKIN: Warm and dry. HEAD: Normocephalic and atraumatic. EYES: No injection or drainage. ENT: No nasal drainage noted. NECK: Supple, trachea midline. CARDIOVASCULAR: Regular rate and rhythm RESPIRATORY: Breath sounds equal bilaterally. No accessory muscle use. GASTROINTESTINAL: Abdomen soft, non-tender, nondistended. EXTREMITIES: No edema. NEUROLOGICAL: Awake and alert. Motor and sensory grossly within normal limits. Normal speech. Data Data Last Documented VS Vital Signs Date Time Temp Pulse Resp B/P (MAP) Pulse Ox O2 Delivery O2 Flow Rate FiO2 03/12/17 18:16 101 16 166/88 (114) 96 Room Air 03/12/17 13:56 98.4 Orders Orders Basic Metabolic Panel (Bmp) (03/12/17 13:59) Ckmb (Isoenzyme) Profile (03/12/17 13:59) Complete Blood Count With Diff (03/12/17 13:59) Magnesium (Mg) (03/12/17 13:59) Troponin I (03/12/17 13:59) Chest, Pa & Lat (03/12/17 13:59) Electrocardiogram (03/12/17 15:35) Prothrombin Time / Inr (Pt) (03/12/17 15:35) Act Partial Throm Time (Ptt) (03/12/17 15:35) Lipase (03/12/17 15:35) Ecg Monitoring (03/12/17 15:35) Bilateral Bp Monitoring (03/12/17 15:35) Iv Access Insert/Monitor (03/12/17 15:35) Oximetry (03/12/17 15:35) Oxygen Administration (03/12/17 15:35) Nitroglycerin 2% Oint (Nitroglycerin 2% (03/12/17 15:45) Sodium Chloride 0.9% Flush (Ns Flush) (03/12/17 15:45) Hepatic Functional Panel (03/12/17 15:35) Ct Brain W/O Iv Contrast(Rout) (03/12/17 ) Aspirin (Aspirin) (03/12/17 15:45) Admit Order (Ed Use Only) (03/12/17 18:22) Labs Laboratory Tests Test 03/12/17 16:10 White Blood Count 7.9 TH/MM3 Red Blood Count 5.35 MIL/MM3 Hemoglobin 16.7 GM/DL Hematocrit 49.7 % Mean Corpuscular Volume 93.0 FL Mean Corpuscular Hemoglobin 31.2 PG Mean Corpuscular Hemoglobin Concent 33.6 % Red Cell Distribution Width 13.9 % Platelet Count 194 TH/MM3 Mean Platelet Volume 8.6 FL Neutrophils (%) (Auto) 51.6 % Lymphocytes (%) (Auto) 37.9 % Monocytes (%) (Auto) 8.8 % Eosinophils (%) (Auto) 1.0 % Basophils (%) (Auto) 0.7 % Neutrophils # (Auto) 4.1 TH/MM3 Lymphocytes # (Auto) 3.0 TH/MM3 Monocytes # (Auto) 0.7 TH/MM3 Eosinophils # (Auto) 0.1 TH/MM3 Basophils # (Auto) 0.1 TH/MM3 CBC Comment DIFF FINAL Differential Comment Prothrombin Time 10.3 SEC Prothromb Time International Ratio 0.9 RATIO Activated Partial Thromboplast Time 24.6 SEC Blood Urea Nitrogen 14 MG/DL Creatinine 0.99 MG/DL Random Glucose 112 MG/DL Calcium Level 9.6 MG/DL Magnesium Level 2.2 MG/DL Sodium Level 139 MEQ/L Potassium Level 3.8 MEQ/L Chloride Level 106 MEQ/L Carbon Dioxide Level 23.5 MEQ/L Anion Gap 10 MEQ/L Estimat Glomerular Filtration Rate 81 ML/MIN Total Bilirubin 0.9 MG/DL Direct Bilirubin 0.2 MG/DL Indirect Bilirubin 0.7 MG/DL Aspartate Amino Transf (AST/SGOT) 70 U/L Alanine Aminotransferase (ALT/SGPT) 107 U/L Alkaline Phosphatase 106 U/L Total Creatine Kinase 97 U/L Troponin I LESS THAN 0.02 NG/ML Total Protein 7.7 GM/DL Albumin 4.0 GM/DL Lipase 198 U/L [facility] Medical Decision Making Medical Screen Exam Complete: Yes Emergency Medical Condition: Yes Medical Record Reviewed: Yes (past history confirmed) Interpretation(s) CBC & BMP Diagram 03/12/17 16:10 Calcium Level 9.6, Magnesium Level 2.2 Last 24 hours Impressions Chest X-Ray 03/12/17 1359 Signed Impressions: Service Date/Time: Sunday, March 12, 2017 14:34 - CONCLUSION: 1. No acute cardiopulmonary disease. Esteban Clay MD Head CT 03/12/17 0000 Signed Impressions: Service Date/Time: Sunday, March 12, 2017 16:37 - CONCLUSION: 1. No evidence of acute intracranial pathology. No masses are identified. Esteban Clay MD Differential Diagnosis Hypertensive urgency, cardiac, gastritis, musculoskeletal.... Narrative Course Will check blood work, chest x-ray, CT brain and dose with aspirin and Nitropaste and reevaluate ED workup without emergent process, patient agrees to chest pain center observation Diagnosis Primary Impression: Chest pain Qualified Codes: R07.9 - Chest pain, unspecified Admitting Information Admitting Physician Requests: Observation Dana Del Cid MD Mar 12, 2017 15:44
[2017-03-12] MEDS ORDERED: SODIUM CHLORIDE 0.9% FLUSH 10 ML FLUSH IVF PRN (15:45)
[2017-03-12] MEDS ORDERED: NITROGLYCERIN 2% OINT 1 GM PACKET TOP ONE (15:45)
[2017-03-12] MEDS ORDERED: ASPIRIN 325 MG TAB PO ONE (15:45)
[2017-03-12 16:33] LABS: AUTOMATED NEUTROPHIL # 4.1 TH/MM3 (1.8-7.7); BASOPHIL # 0.1 TH/MM3 (0-0.2); BASOPHIL % 0.7 % (0.0-2.0); EOSINOPHIL # 0.1 TH/MM3 (0-0.4); HEMATOCRIT 49.7 % (39.0-51.0); HEMO FLAGS DIFF FINAL; LYMPH % 37.9 % (9.0-44.0); MEAN CORPUSCULAR HEMOGLOBIN 31.2 PG (27.0-34.0); MEAN CORPUSCULAR HGB CONC 33.6 % (32.0-36.0); MONO % 8.8 % (0.0-8.0); NEUT % 51.6 % (16.0-70.0); PLATELET COUNT 194 TH/MM3 (150-450); RED BLOOD COUNT 5.35 MIL/MM3 (4.50-5.90); RED CELL DISTRIBUTION WIDTH 13.9 % (11.6-17.2); WHITE BLOOD COUNT 7.9 TH/MM3 (4.0-11.0)
[2017-03-12 16:38] LABS: APTT (PATIENT) 24.6 SEC (24.3-30.1); INTERNATIONAL NORMALIZED RATIO 0.9 RATIO; PROTHROMBIN TIME - PATIENT 10.3 SEC (9.8-11.6)
[2017-03-12 16:57] LABS: TOTAL BILIRUBIN ADULT 0.9 MG/DL (0.2-1.0)
[2017-03-12 17:00] LABS: INDIRECT BILIRUBIN 0.7 MG/DL (0.0-0.8)
--- NOTE | 2017-03-12 17:03 | RADRPT ---
EXAM DATE/TIME: 03/12/2017 16:37 [facility] COMPARISON: CT BRAIN W/O CONTRAST, October 10, 2015, 17:19. INDICATIONS : Elavated blood presure,headache,dizziness,blurred vision. RADIATION DOSE: 30.17 CTDIvol (mGy) MEDICAL HISTORY : Hypertension. Chronic obstructive pulmonary disease. Pancreatitis. SURGICAL HISTORY : None. ENCOUNTER: Initial ACUITY: 1 day PAIN SCALE: 6/10 LOCATION: cranial TECHNIQUE: Multiple contiguous axial images were obtained of the head. Using automated exposure control and adj ustment of the mA and/or kV according to patient size, radiation dose was kept as low as reasonably a chievable to obtain optimal diagnostic quality images. DICOM format image data is available electro nically for review and comparison. FINDINGS: CEREBRUM: The ventricles are normal for age. No evidence of midline shift, mass lesion, hemorrhage or acute in farction. No extra-axial fluid collections are seen. POSTERIOR FOSSA: The cerebellum and brainstem are intact. The 4th ventricle is midline. The cerebellopontine angle i s unremarkable. EXTRACRANIAL: The visualized portion of the orbits is intact. SKULL: The calvaria is intact. No evidence of skull fracture. CONCLUSION: 1. No evidence of acute intracranial pathology. No masses are identified. Esteban Clay MD on March 12, 2017 at 17:00 Board Certified Radiologist. This report was verified electronically.
[2017-03-12 18:11] LABS: ANION GAP 10 MEQ/L (5-15); BICARBONATE 23.5 MEQ/L (21.0-32.0); BLOOD UREA NITROGEN 14 MG/DL (7-18); CHLORIDE 106 MEQ/L (98-107); GLOMERULAR FILTRATION RATE 81 ML/MIN (>89); MAGNESIUM 2.2 MG/DL (1.5-2.5); POTASSIUM 3.8 MEQ/L (3.5-5.1); SODIUM (NA) 139 MEQ/L (136-145)
[2017-03-12 18:17] LABS: CREATINE KINASE 97 U/L (39-308)
[2017-03-12] MEDS ORDERED: SODIUM CHLORIDE 0.9% FLUSH 10 ML FLUSH IV FLUSH PRN (18:45)
[2017-03-12] MEDS ORDERED: ACETAMINOPHEN 325 MG TAB PO ONE (19:00)
[2017-03-12 20:03] LABS: CREATINE KINASE 71 U/L (39-308)
[2017-03-12] MEDS: SODIUM CHLORIDE 0.9% FLUSH 10 ML FLUSH IV FLUSH SCH (22:36)
[2017-03-12 23:54] LABS: CREATINE KINASE 83 U/L (39-308)
[2017-03-13] VITALS (7 sets, daily range): BP systolic 172–177; BP diastolic 93–109; PULSE 80–99; RESP 18–24; TEMP 97.8–98.5; O2SAT 98–99
[2017-03-13] MEDS: SODIUM CHLORIDE 0.9% FLUSH 10 ML FLUSH IV FLUSH SCH (09:14)
[2017-03-13] MEDS ORDERED: LISINOPRIL 20 MG TAB PO ONE (09:15)
[2017-03-13] MEDS ORDERED: HYDROCHLOROTHIAZIDE 25 MG TAB PO ONE (09:15)
[2017-03-13] MEDS ORDERED: RESP: ALBUTEROL 2.5 MG/IPRATROPIUM 0.5 MG NEB (SCH) INH ONE (09:15)
[2017-03-13] MEDS ORDERED: amLODIPine BESYLATE 5 MG TAB PO ONE (09:15)
[2017-03-13] MEDS ORDERED: ACETAMINOPHEN 500 MG CPLT PO ONE (09:15)
--- NOTE | 2017-03-13 09:58 | HHI.HP ---
HPI Primary Care Physician No Primary Care Physician Chief Complaint Headache and high blood pressure History of Present Illness This is a 46-year-old male with history of hypertension, COPD, tobacco abuse that presents to ED with a complaint of headache and high blood pressure. Patient states "I only came in here for my blood pressure." I believe this is causing my headaches and I have been out of my medications for 2 months which includes lisinopril and Lasix. He states that even with his medications his blood pressure was never truly normal but much better than what it was last night. Complains of a frontal dull headache. It is still present but it is feeling better since being in the hospital. Still he has not mentioned chest pain but upon further questioning he states "I had a little chest pain, but that is not why I am here." He describes as a cramping sensation left side. Is been intermittent for 6 months. Not exertionally related. Denies shortness breath, nausea, or diaphoresis associated with this. Review of Systems General: Patient denies fevers, chills recent, and recent travel HEENT: Complains of dull frontal headache. Patient denies sore throat, difficulty swallowing. Cardiovascular: Has the chest discomfort as mentioned above. Denies sensation of heart beating rapidly or irregularly. No syncope. Denies diaphoresis. Respiratory: Denies shortness of breath or inspirational chest discomfort. Denies coughing wheezing or hemoptysis. GI: Patient denies nausea, vomiting, diarrhea, abdominal pain, bloody stools. Musculoskeletal: Patient denies joint pain or edema. Denies calf pain or edema. Neurovascular: Patient denies numbness, tingling, weakness in extremities. Planes of dull frontal headache. Endocrine: Denies polyuria and polydipsia. Hematologic: Denies easy bruising. Skin: Denies rash or itching. Past Family Social History Allergies: Coded Allergies: oxycodone (Unverified Allergy, Severe, Hives, 03/12/17) Past Medical History Hypertension, COPD, tobacco abuse. Denies hyperlipidemia, diabetes, and CAD. Past Surgical History Noncontributory. Reported Medications Reported Meds & Active Scripts Active Albuterol Neb (Albuterol Sulfate) 2.5 Mg/3 Ml Neb 2.5 Mg NEB Q4HR NEB While awake Reported Potassium Chloride 1 Pow Pow 10 Meq PO DAILY Furosemide 20 Mg Tab 20 Mg PO DAILY Lisinopril 20 Mg Tab 20 Mg PO DAILY Active Ordered Medications Current Medications Medications (Trade) Dose Ordered Sig/Catherine Route Start Time Stop Time Status Last Admin (NS Flush) 2 ml UNSCH PRN IVF 03/12/17 15:45 (NS Flush) 2 ml UNSCH PRN IV FLUSH 03/12/17 18:45 (NS Flush) 2 ml BID IV FLUSH 03/12/17 21:00 03/13/17 09:14 (Pneumovax-23 Inj) 25 mcg ONCE ONCE IM 03/13/17 10:00 03/13/17 10:01 (Flu (Quadrivalent) Vaccine Inj) 0.5 ml ONCE ONCE IM 03/13/17 10:00 03/13/17 10:01 (Duoneb Neb) 1 ampule STAT ONCE INH 03/13/17 09:15 03/13/17 09:16 UNV (Prinivil) 20 mg ONCE ONCE PO 03/13/17 09:15 03/13/17 09:16 UNV (Hydrodiuril) 25 mg ONCE ONCE PO 03/13/17 09:15 03/13/17 09:16 UNV (Norvasc) 5 mg NOW ONCE PO 03/13/17 09:15 03/13/17 09:16 UNV Family History Denies family history of CAD. Social History Smokes one half to one pack of cigarettes daily most recently but has smoked as much as 3 packs of cigarettes daily for 30 years. Occasional alcohol. Denies illicit drugs. Physical Exam Vital Signs Vital Signs Date Time Temp Pulse Resp B/P (MAP) Pulse Ox O2 Delivery O2 Flow Rate FiO2 03/13/17 08:13 97.8 80 24 176/109 (131) 99 03/13/17 04:10 99 03/13/17 03:58 98.5 80 18 172/103 (126) 98 03/13/17 00:20 89 03/13/17 00:20 89 03/12/17 23:57 104 03/12/17 23:37 98.5 89 18 162/102 (122) 98 03/12/17 23:00 104 03/12/17 22:57 18 03/12/17 20:20 97.6 99 18 153/97 (115) 97 03/12/17 20:00 97 03/12/17 18:16 101 16 166/88 (114) 96 Room Air 03/12/17 17:01 165/105 (125) 183/106 (131) 03/12/17 15:47 99 Room Air 03/12/17 15:47 15 99 Room Air 03/12/17 13:56 98.4 103 14 185/114 (137) 95 Room Air Physical Exam GENERAL: This is a well-nourished, well-developed patient, in no apparent distress. Patient speaks in clear complete sentences. Patient is pleasant. HEENT: Head is atraumatic and normocephalic. Neck is supple without lymphadenopathy and trachea is midline. No JVD or carotid bruits. CARDIOVASCULAR: Regular rate and rhythm without murmurs, gallops, or rubs. RESPIRATORY: Bilateral expiratory wheezing at the bases. Breath sounds equal bilaterally. No rales, or rhonchi. Chest wall is nontender. No use of accessory muscles. GASTROINTESTINAL: Abdomen is nontender, nondistended. Abdomen soft. No obvious pulsatile mass or bruit. No CVA tenderness. Strong femoral pulses bilaterally. Normal bowel sounds in all quadrants. MUSCULOSKELETAL: Patient is moving upper and lower extremities freely. No calf tenderness or edema, no Homans sign. Strong pulses in upper and lower extremities. Strong weekend receptionist strength bilaterally. NEUROLOGICAL: Patient is alert and oriented. Cranial nerves 2-12 are grossly intact. No focal deficits and speech is clear. SKIN: No rash and turgor is normal. Laboratory Laboratory Tests Test 03/12/17 16:10 03/12/17 19:12 03/12/17 22:37 White Blood Count 7.9 Red Blood Count 5.35 Hemoglobin 16.7 Hematocrit 49.7 Mean Corpuscular Volume 93.0 Mean Corpuscular Hemoglobin 31.2 Mean Corpuscular Hemoglobin Concent 33.6 Red Cell Distribution Width 13.9 Platelet Count 194 Mean Platelet Volume 8.6 Neutrophils (%) (Auto) 51.6 Lymphocytes (%) (Auto) 37.9 Monocytes (%) (Auto) 8.8 Eosinophils (%) (Auto) 1.0 Basophils (%) (Auto) 0.7 Neutrophils # (Auto) 4.1 Lymphocytes # (Auto) 3.0 Monocytes # (Auto) 0.7 Eosinophils # (Auto) 0.1 Basophils # (Auto) 0.1 CBC Comment DIFF FINAL Differential Comment Prothrombin Time 10.3 Prothromb Time International Ratio 0.9 Activated Partial Thromboplast Time 24.6 Blood Urea Nitrogen 14 Creatinine 0.99 Random Glucose 112 Calcium Level 9.6 Magnesium Level 2.2 Sodium Level 139 Potassium Level 3.8 Chloride Level 106 Carbon Dioxide Level 23.5 Anion Gap 10 Estimat Glomerular Filtration Rate 81 Total Bilirubin 0.9 Direct Bilirubin 0.2 Indirect Bilirubin 0.7 Aspartate Amino Transf (AST/SGOT) 70 Alanine Aminotransferase (ALT/SGPT) 107 Alkaline Phosphatase 106 Total Creatine Kinase 97 71 83 Troponin I LESS THAN 0.02 LESS THAN 0.02 LESS THAN 0.02 Total Protein 7.7 Albumin 4.0 Lipase 198 Result Diagram: 03/12/17 1610 03/12/17 1610 Imaging Last 48 hours Impressions Chest X-Ray 03/12/17 1359 Signed Impressions: Service Date/Time: Sunday, March 12, 2017 14:34 - CONCLUSION: 1. No acute cardiopulmonary disease. Esteban Clay MD Head CT 03/12/17 0000 Signed Impressions: Service Date/Time: Sunday, March 12, 2017 16:37 - CONCLUSION: 1. No evidence of acute intracranial pathology. No masses are identified. Esteban Clay MD Course EKGs are sinus rhythm without significant ST segment depressions or elevations. Caprini VTE Risk Assessment Caprini VTE Risk Assessment: No/Low Risk (score <= 1) Caprini Risk Assessment Model Point Value = 1 Point Value = 2 Point Value = 3 Point Value = 5 Age 41-60 Minor surgery BMI > 25 kg/m2 Swollen legs Varicose veins or History of unexplained or recurrent spontaneous Oral contraceptives or hormone replacement Sepsis (< 1 month) Serious lung disease, including pneumonia (< 1 month) Abnormal pulmonary function Acute myocardial infarction Congestive heart failure (< 1 month) History of inflammatory bowel disease Medical patient at bed rest Age 61-74 Arthroscopic surgery Major open surgery (> 45 min) Laparoscopic surgery (> 45 min) Malignancy Confined to bed (> 72 hours) Immobilizing plaster cast Central venous access Age >= 75 History of VTE Family history of VTE Factor V Leiden Prothrombin [id number] Lupus anticoagulant Anticardiolipin antibodies Elevated serum homocysteine Heparin-induced thrombocytopenia Other congenital or acquired thrombophilia Stroke (< 1 month) Elective arthroplasty Hip, pelvis, or leg fracture Acute spinal cord injury (< 1 month) Prophylaxis Regimen Total Risk Factor Score Risk Level Prophylaxis Regimen 0-1 Low Early ambulation 2 Moderate Order ONE of the following: *Sequential Compression Device (SCD) *Heparin 5000 units SQ BID 3-4 Higher Order ONE of the following medications: *Heparin 5000 units SQ TID *Enoxaparin/Lovenox 40 mg SQ daily (WT < 150 kg, CrCl > 30 mL/min) *Enoxaparin/Lovenox 30 mg SQ daily (WT < 150 kg, CrCl > 10-29 mL/min) *Enoxaparin/Lovenox 30 mg SQ BID (WT < 150 kg, CrCl > 30 mL/min) AND/OR *Sequential Compression Device (SCD) 5 or more Highest Order ONE of the following medications: *Heparin 5000 units SQ TID (Preferred with Epidurals) *Enoxaparin/Lovenox 40 mg SQ daily (WT < 150 kg, CrCl > 30 mL/min) *Enoxaparin/Lovenox 30 mg SQ daily (WT < 150 kg, CrCl > 10-29 mL/min) *Enoxaparin/Lovenox 30 mg SQ BID (WT < 150 kg, CrCl > 30 mL/min) AND *Sequential Compression Device (SCD) Assessment and Plan Assessment and Plan * Chest pain: Patient was seen and evaluated by Dr. Esteban Sebastian of cardiology in the chest pain center and at this time does not feel as if his symptoms are cardiac related. He had serial cardiac enzymes and EKGs for ruling out purposes. * Hypertension: Patient was hypertensive. We will restart lisinopril. Change to hydrochlorothiazide. Add amlodipine. He had serial cardiac enzymes and EKGs for ruling out purposes and was seen by Dr. Esteban Sebastian of cardiology in the chest pain center. It is not felt at this time that this is cardiac in nature and will treat his hypertension. He needs to follow-up with PCP. * COPD: Patient needs to quit smoking. He was given DuoNeb. * Tobacco abuse: Patient counseled on the importance of smoking cessation. Patient is stable at this time. Is agreeable to this plan. Eliazar Valenzuela Mar 13, 2017 09:58
[2017-03-13] MEDS ORDERED: PNEUMOCOCCAL POLYVALENT INJ 25 MCG/0.5 ML SYR IM ONE (10:00)
[2017-03-13] MEDS ORDERED: HYDR25TA5 PO (10:00)
[2017-03-13] MEDS ORDERED: AMLO5TAB2 PO (10:00)
[2017-03-13] MEDS ORDERED: INFLUENZA VIRUS VACCINE (QUADRIVALENT) 0.5 ML SYR IM ONE (10:00)
--- NOTE | 2017-03-13 10:01 | HHI.DCPOC ---
Discharge Care Plan Diagnosis: (1) Tobacco abuse (2) Chest pain (3) Hypertension (4) COPD (chronic obstructive pulmonary disease) Goals to Promote Your Health * To prevent worsening of your condition and complications * To maintain your health at the optimal level Directions to Meet Your Goals Take your medications as prescribed Follow your dietary instruction Follow activity as directed Keep your appointments as scheduled Take your immunizations and boosters as scheduled If your symptoms worsen call your PCP, if no PCP go to Urgent Care Center or Emergency Room Smoking is Dangerous to Your Health. Avoid second hand smoke Call the 24-hour hour crisis hotline for domestic abuse at Eliazar Valenzuela Mar 13, 2017 10:01
--- NOTE | 2017-03-13 15:47 | EKG ---
Date Performed: 03/12/2017 Time Performed: 21:56:15 PTAGE: 46 years EKG: Sinus rhythm POSSIBLE LEFT ATRIAL ENLARGEMENT MODERATE ST DEPRESSION ABNORMAL ECG PREVIOUS TRACING : 03/12/2017 18.55 Since previous tracing, no significant change noted DOCTOR: Esteban Sebastian Interpretating Date/Time 03/13/2017 15:45:19
--- NOTE | 2017-03-13 15:49 | EKG ---
Date Performed: 03/12/2017 Time Performed: 18:55:22 PTAGE: 46 years EKG: SINUS TACHYCARDIA POSSIBLE LEFT ATRIAL ENLARGEMENT MODERATE ST DEPRESSION ABNORMAL ECG PREVIOUS TRACING : 03/12/2017 15.30 Since previous tracing, no significant change noted DOCTOR: Esteban Sebastian Interpretating Date/Time 03/13/2017 15:48:06
--- NOTE | 2017-03-13 15:50 | EKG ---
Date Performed: 03/12/2017 Time Performed: 15:30:41 PTAGE: 46 years EKG: SINUS TACHYCARDIA POSSIBLE LEFT ATRIAL ENLARGEMENT MODERATE ST DEPRESSION ABNORMAL ECG PREVIOUS TRACING : 09/17/2016 10.12 Since previous tracing, no significant change noted DOCTOR: Esteban Sebastian Interpretating Date/Time 03/13/2017 15:49:32
== END 2017-03-13 11:33 | disposition home or self-care (01) ==
LOC: NEPC 13:53 → NEDA 18:24 → NEPGCP 19:47
PROVIDERS: ADMIT Internal Medicine Interventional Cardiology; ATTEND Internal Medicine Interventional Cardiology
DX: R07.9 Chest pain, unspecified (principal); R51 Headache; I10 Essential (primary) hypertension; J44.9 Chronic obstructive pulmonary disease, unspecified; R06.02 Shortness of breath; R42 Dizziness and giddiness; H53.8 Other visual disturbances; R55 Syncope and collapse; R00.0 Tachycardia, unspecified; R94.31 Abnormal electrocardiogram [ECG] [EKG]; E78.00 Pure hypercholesterolemia, unspecified; F17.210 Nicotine dependence, cigarettes, uncomplicated; Z79.899 Other long term (current) drug therapy
CPT/HCPCS: 70450; 71020; 80048; 80076; 82550; 83690; 83735; 84484; 85025; 85610; 85730; 93005; 94664; G0378

== ENCOUNTER 2017-07-11 13:48 | Emergency (ER) | payer SELFPAY ==
[~2017-07-11] VITALS: Ht 165.1 cm; Wt 88.6 kg
[~2017-07-11 13:48] MED LIST changes: +AMLO5TAB2 PO; -HYDR-3516 PO; +HYDR25TA5 PO; -MULT1TAB84 PO; -THIA100T PO
[2017-07-11 13:50] VITALS: BP 194/109; PULSE 113; RESP 14; TEMP 96.9; O2SAT 98
[2017-07-11 15:54] LABS: AUTOMATED NEUTROPHIL # 3.3 TH/MM3 (1.8-7.7); BASOPHIL # 0.1 TH/MM3 (0-0.2); EOSINOPHIL # 0.1 TH/MM3 (0-0.4); EOSINOPHIL % 1.2 % (0.0-4.0); HEMATOCRIT 43.1 % (39.0-51.0); LYMPH % 31.9 % (9.0-44.0); LYMPHOCYTE # 1.8 TH/MM3 (1.0-4.8); MEAN CELL VOLUME 94.5 FL (80.0-100.0); MEAN CORPUSCULAR HEMOGLOBIN 32.9 PG (27.0-34.0); MEAN CORPUSCULAR HGB CONC 34.8 % (32.0-36.0); MEAN PLATELET VOLUME 8.5 FL (7.0-11.0); MONO % 6.3 % (0.0-8.0); MONOCYTE # 0.4 TH/MM3 (0-0.9); NEUT % 59.6 % (16.0-70.0); PLATELET COUNT 150 TH/MM3 (150-450); RED BLOOD COUNT 4.57 MIL/MM3 (4.50-5.90); RED CELL DISTRIBUTION WIDTH 13.9 % (11.6-17.2); WHITE BLOOD COUNT 5.5 TH/MM3 (4.0-11.0)
[2017-07-11 16:04] LABS: PROTHROMBIN TIME - PATIENT 10.6 SEC (9.8-11.6)
[2017-07-11 16:11] LABS: ALBUMIN 3.7 GM/DL (3.4-5.0); ALT (GPT) 86 U/L (12-78); AST (GOT) 66 U/L (15-37); BICARBONATE 24.6 MEQ/L (21.0-32.0); BLOOD UREA NITROGEN 17 MG/DL (7-18); CALCIUM 8.7 MG/DL (8.5-10.1); CHLORIDE 107 MEQ/L (98-107); CREATININE 1.14 MG/DL (0.60-1.30); GLOMERULAR FILTRATION RATE 69 ML/MIN (>89); GLUCOSE,RANDOM 167 MG/DL (74-106); MAGNESIUM 2.2 MG/DL (1.5-2.5); SODIUM (NA) 139 MEQ/L (136-145)
[2017-07-11 16:14] LABS: ALKALINE PHOSPHATASE 138 U/L (45-117); TOTAL BILIRUBIN ADULT 0.3 MG/DL (0.2-1.0); TOTAL PROTEIN 7.2 GM/DL (6.4-8.2); TROPONIN I LESS THAN 0.02 NG/ML (0.02-0.05)
[2017-07-11 16:44] VITALS: BP 182/112; O2SAT 97
[2017-07-11] MEDS ORDERED: cloNIDine HCL 0.2 MG TAB PO ONE (16:45)
[2017-07-11] MEDS ORDERED: SODIUM CHLORIDE 0.9% FLUSH 10 ML FLUSH IVF PRN (16:45)
--- NOTE | 2017-07-11 16:47 | PD ---
HPI Chief Complaint: Hypertension Time Seen by Provider: 16:16 Travel History International Travel<30 days: No Contact w/Intl Traveler<30days: No Traveled to known affect area: No History of Present Illness HPI This is a 47-year-old male with history of hypertension that is here in the ER for dizziness that started 3 days ago. Patient stated that he ran out of his hypertension medications for the last 2 months, 3 days ago he started having dizziness, headache and blurred vision and decided to come to the ER today. Patient states that his dizziness comes and goes not related to position or moving his neck, he has blurred vision that comes and goes as well. Headache is frontal, bilateral, 4/10. patient denies any weakness, no slurred speech, no loss of sensation. He denies any chest pain, no shortness of breath, no fever or chills. When I arrived at the ER patient had blood pressure of 190/100, responded well to clonidine. Patient smokes 1 pack a day no alcohol or drugs. PFSH Past Medical History Heart Rhythm Problems: No Cancer: No Cardiac Catheterization: No Cardiovascular Problems: Yes High Cholesterol: Yes Chest Pain: Yes Congestive Heart Failure: No COPD: Yes Diabetes: No Diminished Hearing: No Endocrine: No Gastrointestinal Disorders: Yes (pancreatitis) Genitourinary: No Hypertension: Yes Immune Disorder: No Musculoskeletal: No Neurologic: No Psychiatric: No Reproductive: No Respiratory: Yes Immunizations Current: Yes Pancreatitis: Yes Sleep Apnea: No Triglycerides - High: Yes Influenza Vaccination: No Past Surgical History Abdominal Surgery: Yes (BILATERAL INGUINAL HERNIAS) Coronary Artery Bypass Graft: No Other Surgery: Yes Social History Alcohol Use: Yes ("couple beers every other day") Tobacco Use: Yes (1 ppd) Substance Use: No Allergies-Medications (Allergen,Severity, Reaction): Coded Allergies: oxycodone (Unverified Allergy, Severe, Hives, 07/11/17) Reported Meds & Prescriptions Reported Meds & Active Scripts Active Amlodipine (Amlodipine Besylate) 5 Mg Tab 5 Mg PO DAILY Hydrochlorothiazide 25 Mg Tab 25 Mg PO DAILY 30 Days Albuterol Neb (Albuterol Sulfate) 2.5 Mg/3 Ml Neb 2.5 Mg NEB Q4HR NEB While awake Reported Lisinopril 20 Mg Tab 20 Mg PO DAILY Review of Systems Except as stated in HPI: all other systems reviewed are Neg HENT: Positive: Headaches Physical Exam Narrative GENERAL: No acute distress SKIN: Focused skin assessment warm/dry. HEAD: Atraumatic. Normocephalic. EYES: Pupils equal and round. No scleral icterus. No injection or drainage. ENT: No nasal bleeding or discharge. Mucous membranes pink and moist. NECK: Trachea midline. CARDIOVASCULAR: Regular rate and rhythm. No murmur appreciated. RESPIRATORY: No accessory muscle use. Clear to auscultation. Breath sounds equal bilaterally. GASTROINTESTINAL: Abdomen soft, non-tender, nondistended. Hepatic and splenic margins not palpable. MUSCULOSKELETAL: No obvious deformities. No clubbing. No cyanosis. No edema. NEUROLOGICAL: No weakness, no sensory loss, cranial nerves intact, awake and alert. Normal speech. PSYCHIATRIC: Appropriate mood and affect; insight and judgment normal. Data Data Last Documented VS Vital Signs Date Time Temp Pulse Resp B/P (MAP) Pulse Ox O2 Delivery O2 Flow Rate FiO2 07/11/17 13:50 96.9 113 14 194/109 (137) 98 Orders Orders Electrocardiogram (07/11/17 14:32) Complete Blood Count With Diff (07/11/17 14:32) Comprehensive Metabolic Panel (07/11/17 14:32) Magnesium (Mg) (07/11/17 14:32) Ckmb (Isoenzyme) Profile (07/11/17 14:32) Troponin I (07/11/17 14:32) Act Partial Throm Time (Ptt) (07/11/17 14:32) Prothrombin Time / Inr (Pt) (07/11/17 14:32) CKMB (07/11/17 15:25) CKMB% (07/11/17 15:25) Electrocardiogram (07/11/17 16:31) Ckmb (Isoenzyme) Profile (07/11/17 16:31) Complete Blood Count With Diff (07/11/17 16:31) D-Dimer (07/11/17 16:31) Troponin I (07/11/17 16:31) Chest, Single Ap (07/11/17 16:31) Ecg Monitoring (07/11/17 16:31) Bilateral Bp Monitoring (07/11/17 16:31) Iv Access Insert/Monitor (07/11/17 16:31) Oximetry (07/11/17 16:31) Oxygen Administration (07/11/17 16:31) Sodium Chloride 0.9% Flush (Ns Flush) (07/11/17 16:45) Clonidine (Catapres) (07/11/17 16:45) Ct Brain W/O Iv Contrast(Rout) (07/11/17 ) Urinalysis - C+S If Indicated (07/11/17 16:35) Labs Laboratory Tests Test 07/11/17 15:25 White Blood Count 5.5 TH/MM3 Red Blood Count 4.57 MIL/MM3 Hemoglobin 15.0 GM/DL Hematocrit 43.1 % Mean Corpuscular Volume 94.5 FL Mean Corpuscular Hemoglobin 32.9 PG Mean Corpuscular Hemoglobin Concent 34.8 % Red Cell Distribution Width 13.9 % Platelet Count 150 TH/MM3 Mean Platelet Volume 8.5 FL Neutrophils (%) (Auto) 59.6 % Lymphocytes (%) (Auto) 31.9 % Monocytes (%) (Auto) 6.3 % Eosinophils (%) (Auto) 1.2 % Basophils (%) (Auto) 1.0 % Neutrophils # (Auto) 3.3 TH/MM3 Lymphocytes # (Auto) 1.8 TH/MM3 Monocytes # (Auto) 0.4 TH/MM3 Eosinophils # (Auto) 0.1 TH/MM3 Basophils # (Auto) 0.1 TH/MM3 CBC Comment DIFF FINAL Differential Comment Prothrombin Time 10.6 SEC Prothromb Time International Ratio 1.0 RATIO Activated Partial Thromboplast Time 21.9 SEC Blood Urea Nitrogen 17 MG/DL Creatinine 1.14 MG/DL Random Glucose 167 MG/DL Total Protein 7.2 GM/DL Albumin 3.7 GM/DL Calcium Level 8.7 MG/DL Magnesium Level 2.2 MG/DL Alkaline Phosphatase 138 U/L Aspartate Amino Transf (AST/SGOT) 66 U/L Alanine Aminotransferase (ALT/SGPT) 86 U/L Total Bilirubin 0.3 MG/DL Sodium Level 139 MEQ/L Potassium Level 3.8 MEQ/L Chloride Level 107 MEQ/L Carbon Dioxide Level 24.6 MEQ/L Anion Gap 7 MEQ/L Estimat Glomerular Filtration Rate 69 ML/MIN Total Creatine Kinase 194 U/L Creatine Kinase MB 1.0 NG/ML Troponin I LESS THAN 0.02 NG/ML MDM Medical Decision Making Medical Screen Exam Complete: Yes Emergency Medical Condition: Yes Medical Record Reviewed: Yes Differential Diagnosis Hypertensive urgency, hypertensive emergency, CVA. Narrative Course This is a 47-year-old male who came here for elevated blood pressure, dizziness , headache. He ran out of his medications for the last 2 months. He denies any chest pain or shortness of breath. He currently smokes 1 pack a day no drugs or alcohol. He denies any neurological symptoms physical exam was benign , waiting for labs and head CT to rule out CVA given the patient has blurred vision and dizziness for the last 3 days. Will be signed to next provider. Condition: Stable Rocky Magana MD Jul 11, 2017 16:47
[2017-07-11] MEDS ORDERED: IBUPROFEN 600 MG TAB PO ONE (17:00)
--- NOTE | 2017-07-11 17:27 | RADRPT ---
EXAM DATE/TIME: 07/11/2017 16:56 [facility] COMPARISON: CHEST PA & LAT, March 12, 2017, 14:34. CHEST SINGLE AP, September 17, 2016, 9:58. INDICATIONS : Chest pain. MEDICAL HISTORY : Chronic obstructive pulmonary disease. Hypertension Pancreatitis. SURGICAL HISTORY : None. ENCOUNTER: Initial ACUITY: 3 weeks PAIN SCORE: 3/10 LOCATION: Left chest FINDINGS: A single view of the chest demonstrates the lungs to be symmetrically aerated without evidence of mas s, infiltrate or effusion. The cardiomediastinal contours are unremarkable. Osseous structures are intact. CONCLUSION: No acute disease. Elmer Mahoney MD on July 11, 2017 at 17:24 Board Certified Radiologist. This report was verified electronically.
[2017-07-11 17:30] LABS: BILIRUBIN, URINE NEG (NEG); BLOOD, URINE NEG (NEG); GLUCOSE,URINE NEG (NEG); KETONE, URINE NEG (NEG); NITRITE,URINE NEG (NEG); URINE COLOR LIGHT-YELLOW (YELLW/STRAW); URINE LEUKOCYTE ESTERASE NEG (NEG)
[2017-07-11 17:38] VITALS: BP 148/90
[2017-07-11] MEDS ORDERED: LISINOPRIL 10 MG TAB PO ONE (17:45)
--- NOTE | 2017-07-11 18:33 | PD ---
Physical Exam Date Seen by Provider: Jul 11, 2017 Time Seen by Provider: 18:31 Narrative 47-year-old male came to the emergency room with history of headache and dizziness. His blood pressure was very high in triage. Patient has been noncompliant with his medications because he ran out of them. He was seen by the previous ER physician. Please refer to his history and physical for further details. Sign out was to follow-up on his blood test results and CAT scan of the head. All the blood test results of back and within acceptable limits. Patient was given clonidine by the previous ER physician and I ordered some lisinopril. His current blood pressure is 148/90. Head CT has been done and I am waiting for the CAT scan report. If that's negative patient will be discharged home. Data Data Last Documented VS Vital Signs Date Time Temp Pulse Resp B/P (MAP) Pulse Ox O2 Delivery O2 Flow Rate FiO2 07/11/17 19:04 07/11/17 18:55 85 18 98 Room Air 07/11/17 13:50 96.9 Orders Orders Electrocardiogram (07/11/17 14:32) Complete Blood Count With Diff (07/11/17 14:32) Comprehensive Metabolic Panel (07/11/17 14:32) Magnesium (Mg) (07/11/17 14:32) Ckmb (Isoenzyme) Profile (07/11/17 14:32) Troponin I (07/11/17 14:32) Act Partial Throm Time (Ptt) (07/11/17 14:32) Prothrombin Time / Inr (Pt) (07/11/17 14:32) CKMB (07/11/17 15:25) CKMB% (07/11/17 15:25) D-Dimer (07/11/17 16:31) Chest, Single Ap (07/11/17 16:31) Ecg Monitoring (07/11/17 16:31) Bilateral Bp Monitoring (07/11/17 16:31) Iv Access Insert/Monitor (07/11/17 16:31) Oximetry (07/11/17 16:31) Oxygen Administration (07/11/17 16:31) Sodium Chloride 0.9% Flush (Ns Flush) (07/11/17 16:45) Clonidine (Catapres) (07/11/17 16:45) Ct Brain W/O Iv Contrast(Rout) (07/11/17 ) Urinalysis - C+S If Indicated (07/11/17 16:35) Ibuprofen (Motrin) (07/11/17 17:00) Lisinopril (Prinivil) (07/11/17 17:45) Ed Discharge Order (07/11/17 18:59) Labs Laboratory Tests Test 07/11/17 15:05 07/11/17 15:25 07/11/17 16:40 D-Dimer Quantitative (PE/DVT) 0.34 MG/L FEU White Blood Count 5.5 TH/MM3 Red Blood Count 4.57 MIL/MM3 Hemoglobin 15.0 GM/DL Hematocrit 43.1 % Mean Corpuscular Volume 94.5 FL Mean Corpuscular Hemoglobin 32.9 PG Mean Corpuscular Hemoglobin Concent 34.8 % Red Cell Distribution Width 13.9 % Platelet Count 150 TH/MM3 Mean Platelet Volume 8.5 FL Neutrophils (%) (Auto) 59.6 % Lymphocytes (%) (Auto) 31.9 % Monocytes (%) (Auto) 6.3 % Eosinophils (%) (Auto) 1.2 % Basophils (%) (Auto) 1.0 % Neutrophils # (Auto) 3.3 TH/MM3 Lymphocytes # (Auto) 1.8 TH/MM3 Monocytes # (Auto) 0.4 TH/MM3 Eosinophils # (Auto) 0.1 TH/MM3 Basophils # (Auto) 0.1 TH/MM3 CBC Comment DIFF FINAL Differential Comment Prothrombin Time 10.6 SEC Prothromb Time International Ratio 1.0 RATIO Activated Partial Thromboplast Time 21.9 SEC Blood Urea Nitrogen 17 MG/DL Creatinine 1.14 MG/DL Random Glucose 167 MG/DL Total Protein 7.2 GM/DL Albumin 3.7 GM/DL Calcium Level 8.7 MG/DL Magnesium Level 2.2 MG/DL Alkaline Phosphatase 138 U/L Aspartate Amino Transf (AST/SGOT) 66 U/L Alanine Aminotransferase (ALT/SGPT) 86 U/L Total Bilirubin 0.3 MG/DL Sodium Level 139 MEQ/L Potassium Level 3.8 MEQ/L Chloride Level 107 MEQ/L Carbon Dioxide Level 24.6 MEQ/L Anion Gap 7 MEQ/L Estimat Glomerular Filtration Rate 69 ML/MIN Total Creatine Kinase 194 U/L Creatine Kinase MB 1.0 NG/ML Troponin I LESS THAN 0.02 NG/ML Urine Color LIGHT-YELLOW Urine Turbidity CLEAR Urine pH 6.0 Urine Specific [place] 1.013 Urine Protein NEG mg/dL Urine Glucose (UA) NEG mg/dL Urine Ketones NEG mg/dL Urine Occult Blood NEG Urine Nitrite NEG Urine Bilirubin NEG Urine Urobilinogen LESS THAN 2.0 MG/DL Urine Leukocyte Esterase NEG Microscopic Urinalysis Comment CULT NOT INDICATED MDM Supervised Visit with PRISCA: No Narrative Course 6:34 PM patient is ambulated to the bathroom without any issues. Gait was normal. Diagnosis Primary Impression: Hypertensive crisis Additional Impression: Noncompliance with medication regimen Referrals: Primary Care Physician Additional Instruction: He must take your blood pressure medication as you're supposed to. Otherwise it could lead to a disastrous results including stroke, heart attack, kidney failure or blindness. Med/Other Pt SpecificInfo: Prescription(s) given Scripts Hydrochlorothiazide (Hydrochlorothiazide) 25 Mg Tab 25 MG PO DAILY for Blood Pressure Management for 30 Days, #30 TAB 0 Refills Prov: Celeste Ruiz MD 07/11/17 Lisinopril (Lisinopril) 20 Mg Tab 20 MG PO DAILY, #30 TAB 0 Refills Prov: Celeste Ruiz MD 07/11/17 Disposition: 01 DISCHARGE HOME Condition: Stable Celeste Ruiz MD Jul 11, 2017 18:33
--- NOTE | 2017-07-11 18:49 | RADRPT ---
EXAM DATE/TIME: 07/11/2017 18:20 [facility] COMPARISON: CT BRAIN W/O CONTRAST, March 12, 2017, 16:37. INDICATIONS : Patient complains of dizziness. RADIATION DOSE: 35.53 CTDIvol (mGy) MEDICAL HISTORY : Cardiovascular disease. Hypertension. Chronic obstructive pulmonary disease. SURGICAL HISTORY : None. ENCOUNTER: Initial ACUITY: 1 day PAIN SCALE: 5/10 LOCATION: cranial TECHNIQUE: Multiple contiguous axial images were obtained of the head. Using automated exposure control and adj ustment of the mA and/or kV according to patient size, radiation dose was kept as low as reasonably a chievable to obtain optimal diagnostic quality images. DICOM format image data is available electro nically for review and comparison. FINDINGS: CEREBRUM: The ventricles are normal for age. No evidence of midline shift, mass lesion, hemorrhage or acute in farction. No extra-axial fluid collections are seen. POSTERIOR FOSSA: The cerebellum and brainstem are intact. The 4th ventricle is midline. The cerebellopontine angle i s unremarkable. EXTRACRANIAL: The visualized portion of the orbits is intact. SKULL: The calvaria is intact. No evidence of skull fracture. CONCLUSION: Negative noncontrast head CT. Kirill Carr MD on July 11, 2017 at 18:47 Board Certified Radiologist. This report was verified electronically.
[2017-07-11 18:55] VITALS: BP 162/98; PULSE 85; RESP 18; O2SAT 98
[2017-07-11] MEDS ORDERED: HYDR25TA5 PO (18:59)
[2017-07-11] MEDS ORDERED: LISI-515 PO (18:59)
--- NOTE | 2017-07-12 14:43 | EKG ---
Date Performed: 07/11/2017 Time Performed: 15:23:35 PTAGE: 47 years EKG: Sinus rhythm POSSIBLE LEFT ATRIAL ENLARGEMENT MINIMAL ST DEPRESSION Since previous tracing, no significant change noted BORDERLINE ECG PREVIOUS TRACING : 03/12/2017 21.56 DOCTOR: Teetee Daly Interpretating Date/Time 07/12/2017 14:41:30
== END 2017-07-11 19:11 | disposition home or self-care (01) ==
LOC: NEPD 13:48
DX: I16.9 Hypertensive crisis, unspecified (principal); I10 Essential (primary) hypertension; F17.210 Nicotine dependence, cigarettes, uncomplicated; J44.9 Chronic obstructive pulmonary disease, unspecified; Z79.899 Other long term (current) drug therapy; Z91.14 Patient's other noncompliance with medication regimen
CPT/HCPCS: 70450; 71045; 80053; 81001; 82550; 82552; 83735; 84484; 85025; 85379; 85610; 85730; 93005

== ENCOUNTER 2017-07-18 10:59 | Emergency (ER) | payer SELFPAY ==
[~2017-07-18] VITALS: Ht 165.1 cm; Wt 88.0 kg
[2017-07-18 11:06] VITALS: BP 141/78; PULSE 107; RESP 22; TEMP 98.2; O2SAT 97
[2017-07-18] MEDS ORDERED: SODIUM CHLOR 0.9% 1000 ML INJ 1,000 ML IV ONE (11:15)
--- NOTE | 2017-07-18 11:25 | PD ---
HPI Chief Complaint: Musculoskeletal Complaint Time Seen by Provider: 11:22 Travel History International Travel<30 days: No Contact w/Intl Traveler<30days: No Traveled to known affect area: No History of Present Illness HPI 47-year-old male patient with history of electrolyte abnormalities, presents to the ER today because he states that he started having body cramps and muscle cramps all over starting this morning. He denies any fevers, abdominal pains, vomiting, diarrhea, or any other symptoms. He admits to daily alcohol use but he states he only drinks 1 or 2 beers at a time, had alcohol last night. Modifying Factors: None Associated Signs & Symptoms: Muscle cramps all over body Risk Factors: Electrolyte abnormalities PFSH Past Medical History Heart Rhythm Problems: No Cancer: No Cardiac Catheterization: No Cardiovascular Problems: Yes High Cholesterol: Yes Chest Pain: Yes Congestive Heart Failure: No COPD: Yes Diabetes: No Diminished Hearing: No Endocrine: No Gastrointestinal Disorders: Yes (pancreatitis) Genitourinary: No Hypertension: Yes Immune Disorder: No Musculoskeletal: No Neurologic: No Psychiatric: No Reproductive: No Respiratory: Yes Immunizations Current: Yes Pancreatitis: Yes Sleep Apnea: No Triglycerides - High: Yes Influenza Vaccination: No Past Surgical History Abdominal Surgery: Yes (BILATERAL INGUINAL HERNIAS) Coronary Artery Bypass Graft: No Other Surgery: Yes Social History Alcohol Use: Yes ("couple beers every other day") Tobacco Use: Yes (1 ppd) Substance Use: No Allergies-Medications (Allergen,Severity, Reaction): Coded Allergies: oxycodone (Unverified Allergy, Severe, Hives, 07/11/17) Reported Meds & Prescriptions Reported Meds & Active Scripts Active Hydrochlorothiazide 25 Mg Tab 25 Mg PO DAILY 30 Days Lisinopril 20 Mg Tab 20 Mg PO DAILY Albuterol Neb (Albuterol Sulfate) 2.5 Mg/3 Ml Neb 2.5 Mg NEB Q4HR NEB While awake Review of Systems Except as stated in HPI: all other systems reviewed are Neg Physical Exam Narrative GENERAL: Well-developed middle-aged male patient currently in moderate distress. Awake and oriented 3. SKIN: Focused skin assessment warm/dry. HEAD: Atraumatic. Normocephalic. EYES: Pupils equal and round. No scleral icterus. No injection or drainage. ENT: No nasal bleeding or discharge. Mucous membranes pink and moist. NECK: Trachea midline. No JVD. Supple. CARDIOVASCULAR: Regular rate and rhythm. No murmur appreciated. RESPIRATORY: No accessory muscle use. Clear to auscultation. Breath sounds equal bilaterally. GASTROINTESTINAL: Abdomen soft, non-tender, nondistended. Hepatic and splenic margins not palpable. MUSCULOSKELETAL: No obvious deformities. No clubbing. No cyanosis. No edema. NEUROLOGICAL: Awake and alert. No obvious cranial nerve deficits. Motor grossly within normal limits. Normal speech. PSYCHIATRIC: Appropriate mood and affect; insight and judgment normal. Data Data Last Documented VS Vital Signs Date Time Temp Pulse Resp B/P (MAP) Pulse Ox O2 Delivery O2 Flow Rate FiO2 07/18/17 11:45 99 15 150/92 (111) 97 Room Air 07/18/17 11:06 98.2 Orders Orders Complete Blood Count With Diff (07/18/17 11:14) Basic Metabolic Panel (Bmp) (07/18/17 11:14) Creatine Kinase (Cpk) (07/18/17 11:14) Magnesium (Mg) (07/18/17 11:14) Sodium Chlor 0.9% 1000 Ml Inj (Ns 1000 M (07/18/17 11:15) Cyclobenzaprine (Flexeril) (07/18/17 11:30) Electrocardiogram (07/18/17 11:23) Alcohol (Ethanol) (07/18/17 11:25) Hepatic Functional Panel (07/18/17 11:48) Lipase (07/18/17 11:48) Ed Discharge Order (07/18/17 12:51) Labs Laboratory Tests Test 07/18/17 11:10 White Blood Count 7.4 TH/MM3 Red Blood Count 4.94 MIL/MM3 Hemoglobin 16.4 GM/DL Hematocrit 45.8 % Mean Corpuscular Volume 92.8 FL Mean Corpuscular Hemoglobin 33.3 PG Mean Corpuscular Hemoglobin Concent 35.9 % Red Cell Distribution Width 13.4 % Platelet Count 199 TH/MM3 Mean Platelet Volume 8.5 FL Neutrophils (%) (Auto) 53.3 % Lymphocytes (%) (Auto) 36.1 % Monocytes (%) (Auto) 8.7 % Eosinophils (%) (Auto) 0.8 % Basophils (%) (Auto) 1.1 % Neutrophils # (Auto) 3.9 TH/MM3 Lymphocytes # (Auto) 2.7 TH/MM3 Monocytes # (Auto) 0.6 TH/MM3 Eosinophils # (Auto) 0.1 TH/MM3 Basophils # (Auto) 0.1 TH/MM3 CBC Comment DIFF FINAL Differential Comment Blood Urea Nitrogen 15 MG/DL Creatinine 1.25 MG/DL Random Glucose 137 MG/DL Calcium Level 8.5 MG/DL Magnesium Level 2.3 MG/DL Sodium Level 135 MEQ/L Potassium Level 3.7 MEQ/L Chloride Level 100 MEQ/L Carbon Dioxide Level 24.1 MEQ/L Anion Gap 11 MEQ/L Estimat Glomerular Filtration Rate 62 ML/MIN Total Bilirubin 0.7 MG/DL Direct Bilirubin 0.1 MG/DL Indirect Bilirubin 0.6 MG/DL Aspartate Amino Transf (AST/SGOT) 57 U/L Alanine Aminotransferase (ALT/SGPT) 79 U/L Alkaline Phosphatase 125 U/L Total Creatine Kinase 135 U/L Total Protein 7.6 GM/DL Albumin 4.0 GM/DL Lipase 365 U/L Ethyl Alcohol Level 88 MG/DL MDM Medical Decision Making Medical Screen Exam Complete: Yes Emergency Medical Condition: Yes Medical Record Reviewed: Yes Interpretation(s) Laboratory Tests Test 07/18/17 11:10 Monocytes (%) (Auto) 8.7 % (0.0-8.0) Random Glucose 137 MG/DL (74-106) Sodium Level 135 MEQ/L (136-145) Estimat Glomerular Filtration Rate 62 ML/MIN (>89) Aspartate Amino Transf (AST/SGOT) 57 U/L (15-37) Alanine Aminotransferase (ALT/SGPT) 79 U/L (12-78) Alkaline Phosphatase 125 U/L (45-117) Ethyl Alcohol Level 88 MG/DL (0-5) Differential Diagnosis Rhabdomyolysis versus dehydration versus electrolyte abnormalities Narrative Course Lab work did not show significant metabolic issues. His LFTs are mildly elevated likely secondary to alcohol use. He has a small amount of alcohol in his system still. He was given IV fluids and muscle relaxants and on reevaluation at 12:40 PM, he is feeling improved. Vital signs are stable in the ER. At this point, my plan would be to release him with follow-up to primary care physician. Stay hydrated. Return for any worsening symptoms as needed. The plan has been discussed with him and he states understanding. Diagnosis Primary Impression: Muscle spasm Med/Other Pt SpecificInfo: Prescription(s) given Scripts Cyclobenzaprine (Flexeril) 10 Mg Tab 10 MG PO TID for Muscle Spasm, #12 TAB 0 Refills Prov: Chidi Jacob MD 07/18/17 Disposition: 01 DISCHARGE HOME Condition: Stable Chidi Jacob MD Jul 18, 2017 11:25
[2017-07-18 11:28] LABS: AUTOMATED NEUTROPHIL # 3.9 TH/MM3 (1.8-7.7); BASOPHIL # 0.1 TH/MM3 (0-0.2); BASOPHIL % 1.1 % (0.0-2.0); EOSINOPHIL # 0.1 TH/MM3 (0-0.4); EOSINOPHIL % 0.8 % (0.0-4.0); HEMATOCRIT 45.8 % (39.0-51.0); HEMOGLOBIN 16.4 GM/DL (13.0-17.0); LYMPH % 36.1 % (9.0-44.0); LYMPHOCYTE # 2.7 TH/MM3 (1.0-4.8); MEAN CELL VOLUME 92.8 FL (80.0-100.0); MEAN CORPUSCULAR HEMOGLOBIN 33.3 PG (27.0-34.0); MEAN CORPUSCULAR HGB CONC 35.9 % (32.0-36.0); MEAN PLATELET VOLUME 8.5 FL (7.0-11.0); MONO % 8.7 % (0.0-8.0); MONOCYTE # 0.6 TH/MM3 (0-0.9); NEUT % 53.3 % (16.0-70.0); PLATELET COUNT 199 TH/MM3 (150-450); RED BLOOD COUNT 4.94 MIL/MM3 (4.50-5.90); RED CELL DISTRIBUTION WIDTH 13.4 % (11.6-17.2); WHITE BLOOD COUNT 7.4 TH/MM3 (4.0-11.0)
[2017-07-18] MEDS ORDERED: CYCLOBENZAPRINE HCL 10 MG TAB PO ONE (11:30)
[2017-07-18 11:45] VITALS: BP 150/92; PULSE 99; RESP 15; O2SAT 97
[2017-07-18 11:51] LABS: BICARBONATE 24.1 MEQ/L (21.0-32.0); CALCIUM 8.5 MG/DL (8.5-10.1); CREATININE 1.25 MG/DL (0.60-1.30); MAGNESIUM 2.3 MG/DL (1.5-2.5)
[2017-07-18 12:39] LABS: TOTAL BILIRUBIN ADULT 0.7 MG/DL (0.2-1.0); TOTAL PROTEIN 7.6 GM/DL (6.4-8.2)
[2017-07-18 12:46] LABS: DIRECT BILIRUBIN ADULT 0.1 MG/DL (0.0-0.2); INDIRECT BILIRUBIN 0.6 MG/DL (0.0-0.8)
[2017-07-18] MEDS ORDERED: CYCL10TA PO (12:53)
--- NOTE | 2017-07-20 01:52 | EKG ---
Date Performed: 07/18/2017 Time Performed: 11:48:03 PTAGE: 47 years EKG: Sinus rhythm NONSPECIFIC ST & T-WAVE ABNORMALITY ABNORMAL ECG PREVIOUS TRACING : 07/11/2017 15.23 Since the prior tracing, there has been no significant gao DOCTOR: Gay Gamble Interpretating Date/Time 07/20/2017 01:50:57
== END 2017-07-18 13:53 | disposition home or self-care (01) ==
LOC: NEPC 10:59
DX: M62.838 Other muscle spasm (principal); E87.8 Other disorders of electrolyte and fluid balance, not elsewhere classified; J44.9 Chronic obstructive pulmonary disease, unspecified; I10 Essential (primary) hypertension; R94.31 Abnormal electrocardiogram [ECG] [EKG]; Z72.0 Tobacco use; Z79.899 Other long term (current) drug therapy
CPT/HCPCS: 80048; 80076; 80307; 82550; 83690; 83735; 85025; 93005; 99284; J7030

== ENCOUNTER 2017-10-13 13:11 | Emergency (ER) | payer SELFPAY ==
[~2017-10-13] VITALS: Ht 165.1 cm; Wt 86.0 kg
[~2017-10-13 13:11] MED LIST changes: -AMLO5TAB2 PO; +CYCL10TA PO
[2017-10-13 13:27] VITALS: BP 149/98; PULSE 96; RESP 18; TEMP 97.4; O2SAT 98
[2017-10-13] MEDS ORDERED: SODIUM CHLORIDE 0.9% FLUSH 10 ML FLUSH IVF PRN (14:15)
[2017-10-13] MEDS ORDERED: MORPHINE SULFATE 4 MG/ML INJ IV PUSH ONE ×2 (14:15→15:30)
[2017-10-13] MEDS ORDERED: KETOROLAC TROMETHAMINE 30 MG/ML (IVP) VIAL IV PUSH ONE (14:15)
[2017-10-13] MEDS ORDERED: ONDANSETRON ODT 4 MG TAB PO ONE (14:15)
--- NOTE | 2017-10-13 14:26 | PD ---
HPI Chief Complaint: Injury Time Seen by Provider: 13:36 Travel History International Travel<30 days: No Contact w/Intl Traveler<30days: No Traveled to known affect area: No History of Present Illness HPI 47-year-old male presents emergency department status post fall at his home 2 weeks ago. Patient states he was on a ladder cleaning something off a roof, when he slipped and fell landing on the left leg "wrong". He continues to have pain in the left knee and hip to the point where he needs crutches. Patient has not been evaluated for this injury prior to this visit. Patient states the knee is swollen and pain is 9 out of 10 and not improving. Patient states the hip pain is 10 out of 10 and not improving. Patient denies numbness or tingling. He states he can bear very little weight without significant pain. He denies any other injury. There is no loss of consciousness. He did not his head. He has no neck pain. He is allergic to oxycodone. PFSH Past Medical History Heart Rhythm Problems: No Cancer: No Cardiac Catheterization: No Cardiovascular Problems: Yes High Cholesterol: Yes Chest Pain: Yes Congestive Heart Failure: No COPD: Yes Diabetes: No Diminished Hearing: No Endocrine: No Gastrointestinal Disorders: Yes (pancreatitis) Genitourinary: No Hypertension: Yes Immune Disorder: No Musculoskeletal: No Neurologic: No Psychiatric: No Reproductive: No Respiratory: Yes Immunizations Current: Yes Pancreatitis: Yes Sleep Apnea: No Triglycerides - High: Yes Past Surgical History Abdominal Surgery: Yes (BILATERAL INGUINAL HERNIAS) Coronary Artery Bypass Graft: No Other Surgery: Yes Social History Alcohol Use: Yes ("couple beers every other day") Tobacco Use: Yes (1 ppd) Substance Use: No Allergies-Medications (Allergen,Severity, Reaction): Coded Allergies: oxycodone (Unverified Allergy, Severe, Hives, 07/11/17) Reported Meds & Prescriptions Reported Meds & Active Scripts Active Review of Systems Except as stated in HPI: all other systems reviewed are Neg General / Constitutional: No: Fever Eyes: No: Visual changes HENT: No: Headaches Cardiovascular: No: Chest Pain or Discomfort Respiratory: No: Shortness of Breath Gastrointestinal: No: Abdominal Pain Genitourinary: No: Dysuria Musculoskeletal: Positive: Myalgias, Arthralgias, Limited ROM, Pain Skin: No Rash Neurologic: No: Weakness Psychiatric: No: Depression Endocrine: No: Polydipsia Hematologic/Lymphatic: No: Easy Bruising Physical Exam Narrative GENERAL: Patient appears in mild to moderate distress. SKIN: Warm and dry. Normal color. Normal turgor. No ecchymosis. HEAD: Atraumatic. Normocephalic. Nontender. EYES: Pupils equal and round. No scleral icterus. No injection or drainage. ENT: No nasal bleeding or discharge. Mucous membranes pink and moist. No dental injury. Pharynx is clear. Airways patent. NECK: Trachea midline. No bony tenderness or step-off. Range of motion is full and supple. CARDIOVASCULAR: Regular rate and rhythm. RESPIRATORY: No accessory muscle use. Clear to auscultation. Breath sounds equal bilaterally. GASTROINTESTINAL: Abdomen soft, non-tender, nondistended. Hepatic and splenic margins not palpable. MUSCULOSKELETAL: Extremities without clubbing, cyanosis, or edema. No obvious deformities. Patient is noted to have effusion to the left knee. Exam is very limited secondary to patient's pain. The left hip is also tender with palpation and any kind of movement. There is no crepitus appreciated. Patient denies lumbar back pain with palpation. Pelvis feels stable, and is not worse with compression. NEUROLOGICAL: Awake and alert. No obvious cranial nerve deficits. Motor grossly within normal limits. Five out of 5 muscle strength in the arms and legs. Normal speech. PSYCHIATRIC: Appropriate mood and affect; insight and judgment normal. Data Data Last Documented VS Vital Signs Date Time Temp Pulse Resp B/P (MAP) Pulse Ox O2 Delivery O2 Flow Rate FiO2 10/13/17 15:35 97 Nasal Cannula 2.00 10/13/17 15:30 78 18 10/13/17 13:27 97.4 Orders Orders Hip, Uni(Ap&Lat) W Ap Pelvis (10/13/17 14:11) Iv Access Insert/Monitor (10/13/17 14:11) Oximetry (10/13/17 14:11) Ecg Monitoring (10/13/17 14:11) Morphine Inj (Morphine Inj) (10/13/17 14:15) Sodium Chloride 0.9% Flush (Ns Flush) (10/13/17 14:15) Knee, Complete (4vws) (10/13/17 14:11) Ice/Cold Pack (10/13/17 14:11) Ondansetron Odt (Zofran Odt) (10/13/17 14:15) Ketorolac Inj (Toradol Inj) (10/13/17 14:15) Mri Joint Hip W/O Contrast (10/13/17 ) Morphine Inj (Morphine Inj) (10/13/17 15:15) Morphine Inj (Morphine Inj) (10/13/17 15:30) MDM Medical Decision Making Medical Screen Exam Complete: Yes Emergency Medical Condition: Yes Differential Diagnosis Fall from ladder. Left knee pain. Left hip pain. Possible fracture. Narrative Course Patient has moderate distress but is medically stable at time of exam. IV access is obtained, and patient is given 4 mg morphine IV as well as 30 mg Toradol IV. Patient is given 4 mg Zofran p.o. X-rays of the left hip and pelvis are ordered. X-rays of the left knee ordered. Knee x-rays unremarkable per radiologist for fracture or dislocation. No significant effusion is noted. X-ray of the left hip and pelvis shows Findings are suspicious place subtle nondisplaced subcapital fracture left hip. Anatomic alignment. MRI could be used to confirm. MRI was ordered of the left hip and pelvis which shows: Marrow edema in the left hip extending from the old physis through the greater trochanter. . Trace joint effusion is present as well. There is increased signal in the subcutaneous tissues as well. 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 Pelvic contents unremarkable. These findings were discussed with Dr. Nelson, the radiologist. Call was placed to Dr. Smith, the orthopedic on-call to discuss these findings. Patient was discussed with Dr. Smith, and he feels the patient would be appropriate for discharge home on crutches and pain medication and anti- inflammatory with follow-up in his office. The patient will be placed on Lortab 5/325 one every 6 hours as needed #20. Patient also was given ibuprofen 800 mg 3 times daily with food #60. Patient is to use crutches for ambulation and limited weightbearing. Patient is placed in a knee immobilizer for comfort Work note is given. Mandatory referral to Dr. Smith's office is placed. Patient should follow with Dr. Smith's office as stated above. Diagnosis Primary Impression: Closed left hip fracture Qualified Codes: S72.002A - Fracture of unspecified part of neck of left femur , initial encounter for closed fracture Additional Impressions: Left knee sprain Qualified Codes: S83.92XA - Sprain of unspecified site of left knee, initial encounter Fall on and from ladder causing accidental injury Qualified Codes: W11.XXXA - Fall on and from ladder, initial encounter Referrals: Juice Smith MD Patient Instructions: General Instructions Departure Forms: Work Release Enter return to work date: October 13, 2017 Special Instructions: Patient is unable to bear weight on the left leg until cleared by orthopedist. Patient should not drive or climb. Additional Instructions: Patient was discussed with Dr. Smith, and he feels the patient would be appropriate for discharge home on crutches and pain medication and anti- inflammatory with follow-up in his office. The patient will be placed on Lortab 5/325 one every 6 hours as needed #20. Patient also was given ibuprofen 800 mg 3 times daily with food #60. Patient is to use crutches for ambulation and limited weightbearing. Patient is placed in a knee immobilizer for comfort Work note is given. Mandatory referral to Dr. Smith's office is placed. Patient should follow with Dr. Smith's office as stated above. Med/Other Pt SpecificInfo: Prescription(s) given Disposition: 01 DISCHARGE HOME Condition: Stable Lincoln Bolanos October 13, 2017 14:26
--- NOTE | 2017-10-13 15:03 | RADRPT ---
EXAM DATE/TIME: 10/13/2017 14:39 [facility] COMPARISON: KNEE LEFT COMPLETE (4VWS), October 13, 2017, 14:42. INDICATIONS : Fell 2 weeks ago, pain left knee radiating into left hip and back. MEDICAL HISTORY : None. SURGICAL HISTORY : None. ENCOUNTER: Initial ACUITY: 2 weeks PAIN SCORE: 9/10 LOCATION: Left hip. FINDINGS: Findings are suspicious place subtle nondisplaced subcapital fracture left hip. Anatomic alignment. MRI could be used to confirm. CONCLUSION: Possible fracture as above. Bethel Nelson MD FACR on October 13, 2017 at 14:59 Board Certified Radiologist. This report was verified electronically.
--- NOTE | 2017-10-13 15:04 | RADRPT ---
EXAM DATE/TIME: 10/13/2017 14:42 [facility] COMPARISON: No previous studies available for comparison. INDICATIONS : Patient states fell 2 weeks ago, pain left knee with any motion. MEDICAL HISTORY : None. SURGICAL HISTORY : None. ENCOUNTER: Initial ACUITY: 2 weeks PAIN SCORE: 9/10 LOCATION: Left knee. FINDINGS: Four view examination of the left knee demonstrates no evidence of fracture or dislocation. Bony min eralization is normal. The articular surfaces are intact. The suprapatellar soft tissues have a nor mal configuration. CONCLUSION: Negative for fracture or joint effusion. Bethel Nelson MD FACR on October 13, 2017 at 15:01 Board Certified Radiologist. This report was verified electronically.
[2017-10-13] MEDS ORDERED: MORPHINE SULFATE 2 MG/ML SYRINGE IV PUSH ONE (15:15)
[2017-10-13 15:30] VITALS: BP 139/97; PULSE 78; RESP 18; O2SAT 99
[2017-10-13 15:35] VITALS: O2SAT 97
--- NOTE | 2017-10-13 16:28 | RADRPT ---
EXAM DATE/TIME: 10/13/2017 15:45 [facility] COMPARISON: CT ABDOMEN & PELVIS W CONTRAST, September 20, 2016, 18:07. INDICATIONS : Fracture. MEDICAL HISTORY : Hypercholesterolemia. Chronic obstructive pulmonary disease. Pancreatitis. Hypertension. SURGICAL HISTORY : Inguinal hernia repair. ENCOUNTER: Initial ACUITY: 1 day PAIN SCORE: 10/10 LOCATION: Left hip TECHNIQUE: Multiplanar, multisequence MRI examination was performed without contrast. FINDINGS: Marrow edema in the left hip extending from the old physis through the greater trochanter. . Trace j oint effusion is present as well. There is increased signal in the subcutaneous tissues as well. 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 Pelvic contents unremarkable. CONCLUSION: Probable subacute trochanteric fracture given the history. Premature process cannot be entirely excluded. Neoplastic process cannot be entirely excluded. Correlation is suggested to e xclude avascular necrosis on the right as well. In this age group alcohol would be most likely cause . Bethel Nelson MD FACR on October 13, 2017 at 16:13 Board Certified Radiologist. This report was verified electronically.
[2017-10-13] MEDS ORDERED: HYDR-3516 PO (16:45)
[2017-10-13] MEDS ORDERED: IBUP1TAB7 PO (16:45)
== END 2017-10-13 18:00 | disposition home or self-care (01) ==
LOC: NEPD 13:11
DX: S72.002A Fracture of unspecified part of neck of left femur, initial encounter for closed fracture (principal); S83.92XA Sprain of unspecified site of left knee, initial encounter; I10 Essential (primary) hypertension; E78.5 Hyperlipidemia, unspecified; F17.200 Nicotine dependence, unspecified, uncomplicated; Z87.19 Personal history of other diseases of the digestive system; Z87.09 Personal history of other diseases of the respiratory system; W11.XXXA Fall on and from ladder, initial encounter
CPT/HCPCS: 73502; 73564; 73721; 96374; 96375; 96376; 99285; J1885; J2270

== ENCOUNTER 2017-11-17 06:32 | Emergency (ER) | payer SELFPAY ==
[~2017-11-17] VITALS: Ht 167.6 cm; Wt 86.5 kg
[~2017-11-17 06:32] MED LIST changes: -ALBU0.08 NEB; -CYCL10TA PO; +HYDR-3516 PO; -HYDR25TA5 PO; +IBUP1TAB7 PO; -LISI-515 PO
[2017-11-17 06:34] VITALS: BP 169/95; PULSE 106; RESP 18; TEMP 97.4; O2SAT 97
--- NOTE | 2017-11-17 07:05 | PD ---
HPI Chief Complaint: Nosebleed Time Seen by Provider: 06:51 Travel History International Travel<30 days: No Contact w/Intl Traveler<30days: No Traveled to known affect area: No History of Present Illness HPI The patient is a 47-year-old male who presents to the emergency department via private vehicle for nosebleed. The patient states he awakened in the middle the night and had bleeding out of the right nare. The patient denies any trauma to the nose and denies picking at the nose. He denies any illicit drug use including cocaine use. The patient denies any history of epistaxis and denies any history of bleeding disorders. The patient does not take any blood thinners including aspirin. The patient does have a history of hypertension, however, states he has been out of his lisinopril and hydrochlorothiazide for several months. Symptoms are moderate. He denies any petechia or rash-like changes to the extremities. He denies any bleeding from the gums. Symptoms are mild. PFSH Past Medical History Heart Rhythm Problems: No Cancer: No Cardiac Catheterization: No Cardiovascular Problems: Yes High Cholesterol: Yes Chest Pain: Yes Congestive Heart Failure: No COPD: Yes Diabetes: No Diminished Hearing: No Endocrine: No Gastrointestinal Disorders: Yes (pancreatitis) Genitourinary: No Hypertension: Yes Immune Disorder: No Musculoskeletal: No Neurologic: No Psychiatric: No Reproductive: No Respiratory: Yes Immunizations Current: Yes Pancreatitis: Yes Sleep Apnea: No Triglycerides - High: Yes Past Surgical History Abdominal Surgery: Yes (BILATERAL INGUINAL HERNIAS) Coronary Artery Bypass Graft: No Other Surgery: Yes Social History Alcohol Use: Yes Tobacco Use: Yes (1 ppd) Substance Use: No Allergies-Medications (Allergen,Severity, Reaction): Coded Allergies: oxycodone (Unverified Allergy, Severe, Hives, 11/17/17) Reported Meds & Prescriptions Reported Meds & Active Scripts Active Reported Lisinopril 20 Mg Tab 20 Mg PO DAILY Hydrochlorothiazide 12.5 Mg Cap 12.5 Mg PO DAILY Review of Systems Except as stated in HPI: all other systems reviewed are Neg HENT: Positive: Headaches, Lightheadedness, Nosebleed, No: Gingival Bleeding Cardiovascular: No: Chest Pain or Discomfort Respiratory: No: Shortness of Breath, Hemoptysis Gastrointestinal: No: Nausea, Vomiting, Hematemesis, Hematochezia Skin: No Rash Neurologic: Positive: Dizziness Physical Exam Narrative GENERAL: Awake, alert, pleasant 47-year-old male who appears his stated age and is in no acute respiratory distress. SKIN: Focused skin assessment warm/dry. No petechiae noted. HEAD: Atraumatic. Normocephalic. EYES: Pupils equal and round. No scleral icterus. No injection or drainage. ENT: No nasal bleeding or discharge. Dry blood in the right nare. No visible bleeding along the gumline. No visible blood in the posterior oropharynx. NECK: Trachea midline. No JVD. CARDIOVASCULAR: Regular rate and rhythm. No murmur appreciated. Heart rate in the 80s. RESPIRATORY: No accessory muscle use. Clear to auscultation. Breath sounds equal bilaterally. GASTROINTESTINAL: Abdomen soft, non-tender, nondistended. MUSCULOSKELETAL: No obvious deformities. No clubbing. No cyanosis. No edema. NEUROLOGICAL: Awake and alert. No obvious cranial nerve deficits. Motor grossly within normal limits. Normal speech. Nonfocal PSYCHIATRIC: Appropriate mood and affect; insight and judgment normal. Data Data Last Documented VS Vital Signs Date Time Temp Pulse Resp B/P (MAP) Pulse Ox O2 Delivery O2 Flow Rate FiO2 11/17/17 07:07 100 16 164/110 (128) 98 Room Air 11/17/17 06:34 97.4 Orders Orders Complete Blood Count With Diff (11/17/17 06:54) Basic Metabolic Panel (Bmp) (11/17/17 06:54) Act Partial Throm Time (Ptt) (11/17/17 06:54) Prothrombin Time / Inr (Pt) (11/17/17 06:54) Labs Laboratory Tests Test 11/17/17 07:05 White Blood Count 5.7 TH/MM3 Red Blood Count 4.89 MIL/MM3 Hemoglobin 15.6 GM/DL Hematocrit 45.2 % Mean Corpuscular Volume 92.5 FL Mean Corpuscular Hemoglobin 31.8 PG Mean Corpuscular Hemoglobin Concent 34.4 % Red Cell Distribution Width 13.8 % Platelet Count 189 TH/MM3 Mean Platelet Volume 8.6 FL Neutrophils (%) (Auto) 49.3 % Lymphocytes (%) (Auto) 37.1 % Monocytes (%) (Auto) 9.5 % Eosinophils (%) (Auto) 2.8 % Basophils (%) (Auto) 1.3 % Neutrophils # (Auto) 2.8 TH/MM3 Lymphocytes # (Auto) 2.1 TH/MM3 Monocytes # (Auto) 0.5 TH/MM3 Eosinophils # (Auto) 0.2 TH/MM3 Basophils # (Auto) 0.1 TH/MM3 CBC Comment DIFF FINAL Differential Comment Prothrombin Time 9.8 SEC Prothromb Time International Ratio 1.0 RATIO Activated Partial Thromboplast Time 22.1 SEC Blood Urea Nitrogen 19 MG/DL Creatinine 1.06 MG/DL Random Glucose 132 MG/DL Calcium Level 9.4 MG/DL Sodium Level 140 MEQ/L Potassium Level 4.3 MEQ/L Chloride Level 107 MEQ/L Carbon Dioxide Level 22.9 MEQ/L Anion Gap 10 MEQ/L Estimat Glomerular Filtration Rate 75 ML/MIN [facility] Medical Decision Making Medical Screen Exam Complete: Yes Emergency Medical Condition: Yes Medical Record Reviewed: Yes Interpretation(s) Laboratory Tests Test 11/17/17 07:05 White Blood Count 5.7 TH/MM3 Red Blood Count 4.89 MIL/MM3 Hemoglobin 15.6 GM/DL Hematocrit 45.2 % Mean Corpuscular Volume 92.5 FL Mean Corpuscular Hemoglobin 31.8 PG Mean Corpuscular Hemoglobin Concent 34.4 % Red Cell Distribution Width 13.8 % Platelet Count 189 TH/MM3 Mean Platelet Volume 8.6 FL Neutrophils (%) (Auto) 49.3 % Lymphocytes (%) (Auto) 37.1 % Monocytes (%) (Auto) 9.5 % Eosinophils (%) (Auto) 2.8 % Basophils (%) (Auto) 1.3 % Neutrophils # (Auto) 2.8 TH/MM3 Lymphocytes # (Auto) 2.1 TH/MM3 Monocytes # (Auto) 0.5 TH/MM3 Eosinophils # (Auto) 0.2 TH/MM3 Basophils # (Auto) 0.1 TH/MM3 CBC Comment DIFF FINAL Differential Comment Prothrombin Time 9.8 SEC Prothromb Time International Ratio 1.0 RATIO Activated Partial Thromboplast Time 22.1 SEC Blood Urea Nitrogen 19 MG/DL Creatinine 1.06 MG/DL Random Glucose 132 MG/DL Calcium Level 9.4 MG/DL Sodium Level 140 MEQ/L Potassium Level 4.3 MEQ/L Chloride Level 107 MEQ/L Carbon Dioxide Level 22.9 MEQ/L Anion Gap 10 MEQ/L Estimat Glomerular Filtration Rate 75 ML/MIN Differential Diagnosis Differential diagnosis includes epistaxis, thrombocytopenia, ITP, coagulopathy, alcohol use, hepatic dysfunction. Narrative Course IV was established, labs are drawn and sent, the patient was monitored in the emergency department. There is no active epistaxis, the patient was monitored. Patient has been out of his blood pressure medications for several months, therefore, BMP was sent to lab to evaluate creatinine and potassium level for possible reinstitution of the patient's lisinopril. Platelets were sent to lab , there is no evidence of petechiae or gingival bleeding. CBC reveals normal platelets. Coags are unremarkable. BMP is noted, GFR 75. The patient will be placed back on his lisinopril. The patient was reevaluated at 8 AM, there is no further epistaxis. Patient be discharged home. Diagnosis Primary Impression: Epistaxis Additional Impressions: Hypertension Qualified Codes: I10 - Essential (primary) hypertension Medication refill Patient Instructions: General Instructions Additional Instructions: Please provide the patient a copy of his labs at discharge. Lisinopril as directed. If bleeding returns hold pressure for 20 minutes, if he continues to bleed return to the emergency department. Avoid picking or blowing the nose for 24 hours. Med/Other Pt SpecificInfo: Prescription(s) given Scripts Lisinopril (Lisinopril) 20 Mg Tab 20 MG PO DAILY, #30 TAB 2 Refills Prov: Boone Nielsen MD 11/17/17 Disposition: 01 DISCHARGE HOME Condition: Stable Boone Nielsen MD Nov 17, 2017 07:04
[2017-11-17 07:07] VITALS: BP 164/110; PULSE 100; RESP 16; O2SAT 98
[2017-11-17] MEDS ORDERED: HYDR12.57 PO (07:09)
[2017-11-17] MEDS ORDERED: LISI-515 PO ×2 (07:09→08:03)
[2017-11-17 07:18] LABS: AUTOMATED NEUTROPHIL # 2.8 TH/MM3 (1.8-7.7); BASOPHIL # 0.1 TH/MM3 (0-0.2); BASOPHIL % 1.3 % (0.0-2.0); EOSINOPHIL # 0.2 TH/MM3 (0-0.4); EOSINOPHIL % 2.8 % (0.0-4.0); HEMATOCRIT 45.2 % (39.0-51.0); HEMOGLOBIN 15.6 GM/DL (13.0-17.0); LYMPH % 37.1 % (9.0-44.0); LYMPHOCYTE # 2.1 TH/MM3 (1.0-4.8); MEAN CELL VOLUME 92.5 FL (80.0-100.0); MEAN CORPUSCULAR HEMOGLOBIN 31.8 PG (27.0-34.0); MEAN CORPUSCULAR HGB CONC 34.4 % (32.0-36.0); MEAN PLATELET VOLUME 8.6 FL (7.0-11.0); MONO % 9.5 % (0.0-8.0); MONOCYTE # 0.5 TH/MM3 (0-0.9); NEUT % 49.3 % (16.0-70.0); PLATELET COUNT 189 TH/MM3 (150-450); RED BLOOD COUNT 4.89 MIL/MM3 (4.50-5.90); RED CELL DISTRIBUTION WIDTH 13.8 % (11.6-17.2); WHITE BLOOD COUNT 5.7 TH/MM3 (4.0-11.0)
[2017-11-17 07:28] LABS: PROTHROMBIN TIME - PATIENT 9.8 SEC (9.8-11.6)
[2017-11-17 07:44] LABS: BICARBONATE 22.9 MEQ/L (21.0-32.0); CALCIUM 9.4 MG/DL (8.5-10.1); CREATININE 1.06 MG/DL (0.60-1.30)
[2017-11-17 08:25] VITALS: BP 167/111; PULSE 85; RESP 18; O2SAT 98
== END 2017-11-17 08:27 | disposition home or self-care (01) ==
LOC: NEPC 06:32
DX: R04.0 Epistaxis (principal); I10 Essential (primary) hypertension; E78.00 Pure hypercholesterolemia, unspecified; J44.9 Chronic obstructive pulmonary disease, unspecified; F17.200 Nicotine dependence, unspecified, uncomplicated; Z76.0 Encounter for issue of repeat prescription
CPT/HCPCS: 80048; 85025; 85610; 85730; 99283